=== PATIENT | male | born 1960 | race Caucasian/White ===

== ENCOUNTER 2017-09-03 11:40 | Outpatient (RCR) | payer OTHER, SELFPAY | END 2017-09-29 23:59 | LOC: DC 11:40 | DX: E11.9 Type 2 diabetes mellitus without complications (principal); Z71.3 Dietary counseling and surveillance | CPT/HCPCS: 97802 ==

== ENCOUNTER 2017-11-19 10:56 | Outpatient (RCR) | payer OTHER, SELFPAY | END 2017-11-19 23:59 | LOC: DC 10:56 | DX: E11.9 Type 2 diabetes mellitus without complications (principal); Z71.3 Dietary counseling and surveillance | CPT/HCPCS: 97803 ==

== ENCOUNTER → 2018-09-02 09:56 | Outpatient (CLI) | payer OTHER, SELFPAY ==
[2018-09-02 12:08] LABS: Absolute Lymphocyte Count 2.38 X10^3/ul (0.83-4.51); Absolute Neutrophil Count 5.8 X10^3/uL (2.0-7.7); Basophil# 0.03 X10^3/uL; Basophil% 0.3 % (0-1); Eosinophil# 0.22 X10^3/uL; Eosinophils% 2.5 % (0-5); Hematocrit 43.9 % (40-54); Hemoglobin 14.7 g/dl (13.0-16.5); Lymphocyte # 2.38 X10^3/ul (4.0); Lymphocyte % 26.6 % (19-41); Mean Corp Hgb Conc 33.5 g/gl (32-36); Mean Corpuscular Hgb 29.6 pg (27.0-32.0); Mean Corpuscular Volume 88.3 fL (80-94); Mean Platelet Vol. 10.4 fl (6.2-12.0); Monocyte% 5.6 % (0-10); Neutrophil # 5.79 X10^3/uL (2.7-7.7); Neutrophil % 64.6 % (47-70); Platelet Count 168 K/mm3 (150-450); RBC Distribution Width CV 13.4 % (11.6-14.6); RBC Distribution Width SD 42.5 fl (35.1-43.9); Red Blood Count 4.97 M/mm3 (4.6-6.2)
[2018-09-02 12:11] LABS: POSITIVE COUNT NO; POSITIVE DIFFERENTIAL NO; POSITIVE MORPHOLOGY NO
[2018-09-02 12:34] LABS: ALB/GLOB Ratio 0.9 RATIO (0.9-2.4); AST(SGOT) 20 U/L (15-37); Alanine Aminotransfer ALT/SGPT 45 U/L (16-61); Albumin, Serum 3.6 g/dL (3.2-5.0); Alkaline Phosphatase 60 U/L (45-117); Anion Gap 12 (5-15); BUN 14 mg/dL (7-18); Calcium,Total 8.7 mg/dL (8.5-10.1); Chloride 106 mmol/L (98-107); Cholesterol 130 mg/dL (200); Creatinine, Serum 0.82 mg/dL (0.70-1.30); EST Glomerular Filtration Rate 103 mL/min (>60); Est Glom Filt Rate - Afr Amer 124 mL/min (>60); Globulin 3.8 g/dL (2.2-4.2); Glucose 205 mg/dL (74-106); High Density Lipoprotein 31 mg/dL; PSA,Total - Annual Screen 0.72 ng/mL (0.00-4.00); Potassium 4.3 mmol/L (3.5-5.1); Protein, Total 7.4 g/dL (6.4-8.2); Sodium Level 139 mmol/L (136-145); Triglycerides 289 mg/dL; Very Low Density Lipoprotein 58 mg/dL (5-40)
[2018-09-02 12:46] LABS: Microalbumin,Random Urine 48.5 mg/L (NO RANGE EST.); Microalbumin:Creatinine Ratio 62.3 mg/g CRE (<30 mg/g CRE)
== END ==
PROVIDERS: Family Provider Family Medicine; PCP Family Medicine; Visit Provider Family Medicine
DX: E11.9 Type 2 diabetes mellitus without complications (principal); Z12.5 Encounter for screening for malignant neoplasm of prostate; E78.5 Hyperlipidemia, unspecified
CPT/HCPCS: 36415; 80053; 80061; 82043; 82570; 84153; 85025; G0103

== ENCOUNTER 2019-08-04 07:19 | Day surgery (SDC) | payer OTHER, SELFPAY ==
[2019-07-05 08:15] VITALS: BMI 32.0
--- NOTE | 2019-07-05 08:29 | HP_ITS ---
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[employer] Required: No Is patient in pain?: No Allergies No Known Allergies Allergy (Unverified 07/05/19 08:15) Medications aspirin 81 mg tablet,delayed release 81 mg PO DAILY 07/05/19 [History Confirmed 07/05/19] atorvastatin 20 mg tablet 20 mg PO DAILY 07/05/19 [History Confirmed 07/05/19] dulaglutide 1.5 mg/0.5 mL subcutaneous pen injector 1.5 mg SC QWEEK 07/05/19 [History Confirmed 07/05/19] gabapentin 400 mg capsule 400 mg PO BID 07/05/19 [History Confirmed 07/05/19] losartan 100 mg tablet 100 mg PO DAILY 07/05/19 [History Confirmed 07/05/19] metformin 1,000 mg tablet 1,000 mg PO BID 07/05/19 [History Confirmed 07/05/19] montelukast 10 mg tablet 10 mg PO QPM 07/05/19 [History Confirmed 07/05/19] omega-3 fatty acids 1,000 mg capsule 1,000 mg PO DAILY 07/05/19 [History Confirmed 07/05/19] pioglitazone 30 mg tablet 30 mg PO DAILY 07/05/19 [History Confirmed 07/05/19] PFSH Medical History Diabetes (Acute) Hyperlipidemia (Acute) ALICE (obstructive sleep apnea) (Acute) HTN (hypertension) (Chronic) Surgical History s/p uvulaplasty (Acute) Family History Grandfather Cancer Grandmother Heart disease Father Cancer throat Social History (Updated 07/05/19 @ 08:29 by Alfredo Gomez MD) Smoking Status: Never smoker alcohol intake: current alcohol intake frequency: holidays/special occasions only HPI HPI HPI: GEOVANNY MILLER, is a 58 M who presents to the office today for HPI HPI Surgical H&P: Yes HPI: GEOVANNY MILLER, is a 58 M who presents to the office today for Positive Cologuard. Patient reports he had a last colonoscopy 20 years ago. He reports no abdominal pain or blood in his stool. He has no epigastric pain. He does not have any history of weight loss. He has no family history of colon cancer. ROS General General: No weight change or fatigue Endo Endocrine: Yes diabetes mellitus Cardio Cardiovascular: No murmur, pacemaker, heart disease, atrial fibrillation, high blood pressure, heart attack, heart stent, palpitations, shortness of breat with exertion or chest pain Psych Psychiatric: No depression or anxiety Resp Respiratory: No shortness of breath, Yes sleep apnea, No cough, No COPD, No asthma, No emphysema, No wheezing Gastro Gastrointestinal: No abdominal pain, No nausea or vomiting, No diarrhea, No constipation, No blood in stool, No acid reflux, No hemorrhoids, No ulcers, No gallbladder problem, No black,tarry stools Additional Details: Pancreatitis [place] Hematologic: No blood thinners Exam Const General: cooperative Orientation: alert, oriented x3 Resp Effort & Inspection: normal respiratory effort Auscultation: clear to auscultation bilaterally Cardio Rate: regular rate Rhythm: regular rhythm Heart Sounds: no murmurs GI Inspection: non-distended Palpation: soft, nontender Assessment & Plan Problems 1. Positive colorectal cancer screening using Cologuard test R19.5 2. Tobacco abuse Z72.0 Plan Patient is need of colonoscopy for positive Cologuard test. I also counseled on tobacco cessation. I explained endoscopy in detail to the patient. I explained the risks including but not limited to stroke or heart attack with anesthesia, perforation of the GI tract, bleeding, infection. I explained that any of these could necessitate further emergency surgery. The patient understands and all questions were answered sufficiently. The patient wishes to proceed with procedure. Alfredo Gomez MD Pager: [facility] [address] [place] [address], [address] [place] [address] Office: Orders Orders: Colonoscopy Today R19.5 Coding Level of Care Code Off vis,new,level 3 Diagnoses Positive colorectal cancer screening using Cologuard test R19.5 Tobacco abuse Z72.0 07/05/19 0829 <Electronically signed by Alfredo rocha MD> Date _ Alfredo Gomez MD I have re-examined the patient. There are no clinical changes since date of exam.
[2019-08-04] VITALS (7 sets, daily range): BP systolic 106–131; BP diastolic 71–82; PULSE 66–81; RESP 14–16; TEMP 24.4–36.6; O2SAT 93–97; BMI 33.3
[2019-08-04] MEDS: Lactated Ringers 1,000 ML 100 ML IV (08:00)
[2019-08-04 08:11] LABS: Bedside Glucose 187 mg/dL (70-110)
--- NOTE | 2019-08-04 08:30 | COLBX_PTH ---
PATIENT: GEOVANNY MILLER Jr. LOC: EN U#:[id number] AGE/SX: 58/M ROOM: RE08/04/[address]: Dr. Alfredo Gomez MD : 1960 BED: DIS: 08/04/2019 SPEC #: [id number] RECD: 08/04/19 09:09 STATUS: JANIE JESSIE #: [id number] AMAN: 08/04/19 08:[address]: Alfredo Gomez DEPT: SURGICAL PATHOLOGY RECD BY: Devon Ferguson ENTERED: 08/04/19 12:38 SP TYPE: COLON BX OTHR DR: Dr. Bobbi Briones MD Tissues: A - Sigmoid colon biopsy B - Cecum, NOS Procedures: Surgery Specimen Level IV HEADER OPERATION: Colonoscopy (MAC) PRE-OP DIAGNOSIS: Positive Cologuard TISSUE SUBMITTED: A - Sigmoid polyp, B - Cecum polyp MICROSCOPIC DIAGNOSIS A. Sigmoid colon polyp, biopsy: Tubular adenoma. B. Cecum polyp, biopsy: Fragments of tubular adenoma. Fecal debris. AM:johnny 08/07/19 MICROSCOPIC DESCRIPTION Slides are reviewed. GROSS DESCRIPTION A - Received in fixative is one container labeled with the patient's name and designated sigmoid polyp. The specimen consists of multiple irregular fragments of pastor soft tissue mixed with polypoid tissue that in aggregate measure 2 x 0.5 x 0.3 cm. The specimen is totally submitted in one cassette. B - Received is one container labeled with the patient's name and not further designated. The specimen consists of multiple irregular fragments of pastor soft tissue mixed with fecal material that in aggregate measure 2.5 x 0.5 x 0.1 cm. The specimen is totally submitted in one cassette. / SJ:johnny 08/04/19 TC:5 CPT: 84102 x2
--- NOTE | 2019-08-04 08:45 | OP.COLON_ITS ---
Patient Name: Buck Campuzano Procedure Date: 08/04/2019 8:07 AM Date of : 1960 Age: 58 Procedure: Colonoscopy Indications: Positive Cologuard test Providers: Alfredo Gomez MD Referring MD: Bobbi Briones Medicines: Monitored Anesthesia Care Patient Profile: Last Colonoscopy: more than 10 years ago. Complications: No immediate complications. Estimated blood loss: Minimal. Procedure: Pre-Anesthesia Assessment: - Prior to the procedure, a History and Physical was performed, and patient medications and allergies were reviewed. The patient's tolerance of previous anesthesia was also reviewed. The risks and benefits of the procedure and the sedation options and risks were discussed with the patient. All questions were answered, and informed consent was obtained. Prior Anticoagulants: The patient has taken aspirin, last dose was day of procedure. After reviewing the risks and benefits, the patient was deemed in satisfactory condition to undergo the procedure. After I obtained informed consent, the scope was passed under direct vision. Throughout the procedure, the patient's blood pressure, pulse, and oxygen saturations were monitored continuously. The colonoscope was introduced through the anus and advanced to the cecum, identified by appendiceal orifice and ileocecal valve. The colonoscopy was performed without difficulty. The patient tolerated the procedure well. The quality of the bowel preparation was adequate. Scope In: 8:15:50 AM Scope Withdrawal Time 0 hours 9 minutes 51 seconds Scope Out: 8:42:03 AM Total Procedure Duration Time 0 hours 26 minutes 13 seconds Findings: Two sessile polyps were found in the sigmoid colon and cecum. These polyps were removed with a hot snare. Resection and retrieval were complete. The exam was otherwise without abnormality on direct and retroflexion views. Impression: - Two polyps in the sigmoid colon and in the cecum, removed with a hot snare. Resected and retrieved. - The examination was otherwise normal on direct and retroflexion views. Recommendation: - Discharge patient to home. - Resume previous diet. - Continue present medications. - Await pathology results. - Repeat colonoscopy after studies are complete for surveillance. Procedure Code(s): --- Professional --- 87522, Colonoscopy, flexible; with removal of tumor(s), polyp(s), or other lesion(s) by snare technique Diagnosis Code(s): --- Professional --- D12.5, Benign neoplasm of sigmoid colon D12.0, Benign neoplasm of cecum R19.5, Other fecal abnormalities CPT copyright 2017 [employer]. All rights reserved. The codes documented in this report are preliminary and upon inpatient coder review may be revised to meet current compliance requirements. Alfredo Gomez MD 08/04/2019 8:45:30 AM This report has been signed electronically. Number of Addenda: 0 Note Initiated On: 08/04/2019 8:07 AM
[2019-08-04 09:16] LABS: Bedside Glucose 146 mg/dL (70-110)
== END 2019-08-04 09:24 | disposition home or self-care (01) ==
LOC: EN 07:20 → AC 07:21
PROVIDERS: Family Provider Family Medicine; PCP Family Medicine; Referring Provider Family Medicine; Visit Provider Surgery
PROC: 0DJD8ZZ Inspection of Lower Intestinal Tract, Via Natural or Artificial Opening Endoscopic (ICD-10-PCS; CPT 45378; principal; 2019-08-04 08:25)
DX: D12.5 Benign neoplasm of sigmoid colon (principal); K63.5 Polyp of colon; I10 Essential (primary) hypertension; E11.9 Type 2 diabetes mellitus without complications; E78.00 Pure hypercholesterolemia, unspecified; G47.33 Obstructive sleep apnea (adult) (pediatric); G25.81 Restless legs syndrome; Z79.82 Long term (current) use of aspirin; Z79.84 Long term (current) use of oral hypoglycemic drugs; Z79.899 Other long term (current) drug therapy; Z87.891 Personal history of nicotine dependence
CPT/HCPCS: 45385; 82962; 88305; J7120; J2405

== ENCOUNTER → 2022-09-25 | Outpatient (CLI) | payer OTHER, SELFPAY ==
[2022-09-25 12:38] LABS: Basophil# 0.03 X10^3/uL; Basophil% 0.4 % (0-1); Eosinophil# 0.16 X10^3/uL; Eosinophils% 2.1 % (0-5); Hematocrit 44.3 % (40-54); Hemoglobin 15.1 g/dL (13.0-16.5); Lymphocyte % 23.7 % (19-41); Mean Corp Hgb Conc 34.1 g/dL (32-36); Mean Corpuscular Hgb 30.8 pg (27.0-32.0); Mean Corpuscular Volume 90.4 fL (80-94); Mean Platelet Vol. 10.3 fl (6.2-12.0); Monocyte# 0.51 X10^3/uL; Monocyte% 6.7 % (0-10); NRBC Flagged by Analyzer 0 % (0-5); Platelet Count 186 K/mm3 (150-450); RBC Distribution Width SD 42.2 fl (35.1-43.9); White Blood Count 7.6 K/mm3 (4.4-11.0)
[2022-09-25 12:57] LABS: Microalbumin,Random Urine 10.9 mg/L (NO RANGE EST.); Microalbumin:Creatinine Ratio 33.2 mg/g CRE (<30 mg/g CRE)
[2022-09-25 13:16] LABS: ALB/GLOB Ratio 1.1 RATIO (0.9-2.4); AST(SGOT) 14 U/L (15-37); Alanine Aminotransfer ALT/SGPT 32 U/L (16-61); Albumin, Serum 3.8 g/dL (3.2-5.0); Alkaline Phosphatase 55 U/L (45-117); Anion Gap 7 (5-15); BUN 12 mg/dL (7-18); BUN/Creat Ratio 15.2 RATIO (10-20); Calcium,Total 9.5 mg/dL (8.5-10.1); Chloride 106 mmol/L (98-107); Cholesterol 132 mg/dL (200); Creatinine, Serum 0.79 mg/dL (0.70-1.30); EST Glomerular Filtration Rate 106 mL/min (>60); Est Glom Filt Rate - Afr Amer 128 mL/min (>60); Globulin 3.6 g/dL (2.2-4.2); Glucose 166 mg/dL (74-106); High Density Lipoprotein 49 mg/dL; Potassium 4.2 mmol/L (3.5-5.1); Protein, Total 7.4 g/dL (6.4-8.2); Sodium Level 139 mmol/L (136-145); Triglycerides 75 mg/dL; Very Low Density Lipoprotein 15 mg/dL (5-40)
== END | disposition home or self-care (01) ==
PROVIDERS: PCP Family Medicine; Visit Provider Family Medicine
DX: Z00.00 Encounter for general adult medical examination without abnormal findings (principal); E11.65 Type 2 diabetes mellitus with hyperglycemia; E11.69 Type 2 diabetes mellitus with other specified complication; E78.5 Hyperlipidemia, unspecified
CPT/HCPCS: 80053; 80061; 82043; 82570; 85025

== ENCOUNTER → 2023-11-19 | Outpatient (CLI) | payer OTHER, SELFPAY ==
[2023-11-19 12:22] LABS: Absolute Lymphocyte Count 2.03 X10^3/uL (0.83-4.51); Absolute Neutrophil Count 4.5 X10^3/uL (2.0-7.7); Basophil# 0.02 X10^3/uL; Basophil% 0.3 % (0-1); Eosinophil# 0.15 X10^3/uL; Eosinophils% 2.1 % (0-5); Hematocrit 41.9 % (40-54); Hemoglobin 14.1 g/dL (13.0-16.5); Lymphocyte # 2.03 X10^3/ul (0.83-4.51); Lymphocyte % 28.2 % (19-41); Mean Corp Hgb Conc 33.7 g/dL (32-36); Mean Corpuscular Hgb 29.9 pg (27.0-32.0); Mean Platelet Vol. 10.3 fl (6.2-12.0); Monocyte# 0.48 X10^3/uL; Monocyte% 6.7 % (0-10); NRBC Flagged by Analyzer 0 % (0-5); Neutrophil # 4.46 X10^3/uL (2.7-7.7); Platelet Count 188 K/mm3 (150-450); RBC Distribution Width CV 12.7 % (11.6-14.6); RBC Distribution Width SD 41.3 fl (35.1-43.9); Red Blood Count 4.71 M/mm3 (4.6-6.2); White Blood Count 7.2 K/mm3 (4.4-11.0)
[2023-11-19 13:01] LABS: AST(SGOT) 13 U/L (15-37); Alanine Aminotransfer ALT/SGPT 27 U/L (16-61); Albumin, Serum 3.5 g/dL (3.2-5.0); Alkaline Phosphatase 41 U/L (45-117); Anion Gap 7 (5-15); BUN 12 mg/dL (7-18); BUN/Creat Ratio 17.7 RATIO (10-20); Calcium,Total 9.2 mg/dL (8.5-10.1); Chloride 106 mmol/L (98-107); Cholesterol 133 mg/dL (200); Creatinine, Serum 0.68 mg/dL (0.70-1.30); EST Glomerular Filtration Rate 127 mL/min (>60); Est Glom Filt Rate - Afr Amer 153 mL/min (>60); Globulin 3.6 g/dL (2.2-4.2); Glucose 123 mg/dL (74-106); High Density Lipoprotein 50 mg/dL; Protein, Total 7.1 g/dL (6.4-8.2); Sodium Level 136 mmol/L (136-145); Thyroid Stim Hormone (TSH) 2.03 uIU/mL (0.358-3.74); Triglycerides 110 mg/dL; Very Low Density Lipoprotein 22 mg/dL (5-40)
[2023-11-19 16:03] LABS: Microalbumin,Random Urine 20.8 mg/L (NO RANGE EST.); Microalbumin:Creatinine Ratio 25.4 mg/g CRE (<30 mg/g CRE)
== END | disposition home or self-care (01) ==
LOC: BFHLAB 10:56
PROVIDERS: PCP Family Medicine; Visit Provider Family Medicine
DX: Z00.00 Encounter for general adult medical examination without abnormal findings (principal); E11.65 Type 2 diabetes mellitus with hyperglycemia; E11.69 Type 2 diabetes mellitus with other specified complication; E78.5 Hyperlipidemia, unspecified; I10 Essential (primary) hypertension
CPT/HCPCS: 36415; 80053; 80061; 82043; 82570; 84443; 85025

== ENCOUNTER → 2025-01-25 | Outpatient (CLI) | payer OTHER, SELFPAY ==
[2025-01-25 12:43] LABS: Absolute Lymphocyte Count 1.75 X10^3/uL (0.83-4.51); Absolute Neutrophil Count 6.7 X10^3/uL (2.0-7.7); Basophil# 0.04 X10^3/uL; Basophil% 0.4 % (0-1); Eosinophil# 0.23 X10^3/uL; Eosinophils% 2.5 % (0-5); Hematocrit 42.3 % (40-54); Lymphocyte # 1.75 X10^3/ul (0.83-4.51); Lymphocyte % 18.9 % (19-41); Mean Corp Hgb Conc 33.1 g/dL (32-36); Mean Corpuscular Hgb 30.6 pg (27.0-32.0); Mean Corpuscular Volume 92.6 fL (80-94); Mean Platelet Vol. 10.3 fl (6.2-12.0); Monocyte# 0.53 X10^3/uL; Monocyte% 5.7 % (0-10); NRBC Flagged by Analyzer 0 % (0-5); Neutrophil # 6.68 X10^3/uL (2.7-7.7); Neutrophil % 72.1 % (47-70); Platelet Count 187 K/mm3 (150-450); RBC Distribution Width CV 13.6 % (11.6-14.6); RBC Distribution Width SD 46.5 fl (35.1-43.9); Red Blood Count 4.57 M/mm3 (4.6-6.2); White Blood Count 9.3 K/mm3 (4.4-11.0)
[2025-01-25 13:40] LABS: ALB/GLOB Ratio 1.6 RATIO (0.9-2.4); AST(SGOT) 19 U/L (<=37); Alanine Aminotransfer ALT/SGPT 18 U/L (<=46); Albumin, Serum 4.2 g/dL (3.4-4.8); Alkaline Phosphatase 46 U/L (40-129); Anion Gap 12 (5-15); BUN 17 mg/dL (4-19); BUN/Creat Ratio 22.8 RATIO (10-20); Calcium,Total 9.6 mg/dL (7.6-11.0); Carbon Dioxide 22.5 mmol/L (21.0-32.0); Chloride 102 mmol/L (98-108); Cholesterol 110 mg/dL (<=200); Creatinine, Serum 0.73 mg/dL (0.70-1.20); EST Glomerular Filtration Rate 103 (>60); Globulin 2.6 g/dL (2.2-4.2); Glucose 91 mg/dL (70-99); High Density Lipoprotein 48 mg/dL; Low Density Lipoprotein Calc. 44 mg/dL; Potassium 4.7 mmol/L (3.3-5.1); Protein, Total 6.8 g/dL (5.9-8.4); Sodium Level 137 mmol/L (133-145); Triglycerides 89 mg/dL; Very Low Density Lipoprotein 18 mg/dL (5-40); cholesterol:hdl ratio screen 2.29
[2025-01-25 13:46] LABS: Microalbumin,Random Urine < 12.0 mg/L (NO RANGE EST.); Microalbumin:Creatinine Ratio UNABLE TO CALCULATE mg/g CRE
--- OUTSIDE RECORDS SUMMARY | 2025-01-25 19:31 | XMS RPT_ITS | CCD ---
Author Organization [facility] Care Team Providers Care Integrity Manager Name Role Phone Bobbi Briones E Unavailable Unavailable Unavailable Bobbi Briones Attending Unavailable Bobbi Briones Primary Care Unavailable Bobbi Briones MD Primary Care Provider [phone] BOBBI BRIONES Primary Care Unavailable JIMMY OGDEN Referring Unavailable JIMMY OGDEN Attending Unavailable BOBBI BRIONES Referring Unavailable BOBBI BRIONES Primary Care Unavailable NEYMAR BLACK Attending Unavailable JIMMY OGDEN Attending Unavailable BOBBI BRIONES Primary Care Unavailable BOBBI BRIONES Primary Care Unavailable NYDIA LEAL Referring Unavailable JIMMY OGDEN Attending Unavailable Allergies Allergy Classification Reported Allergen(s) Allergy Type Date of Onset Reaction(s) Facility (4 sources) Grass Allergy to substance (finding) [facility] Work Phone: (3 sources) Lisinopril Propensity to adverse reactions 2 Cough [facility] (3 sources) Pollen Propensity to adverse reactions 0 Itching, Runny nose, Wheezing [facility] Medications Current Medications Medication Drug Class(es) Dates Sig (Normalized) Sig (Original) aspirin 81 mg delayed release oral tablet (3 sources) Platelet Aggregation Inhibitor, Nonsteroidal Anti-inflammatory Drug Start: 07-05-2019 Aspirin (Maki Low Dose Aspirin) 81 mg tablet,delayed release (DR/EC) Active 81 MG PO DAILY July 05, 2019 1:00am Start: 09-12-2015 take 81 mg by mouth once daily aspirin 81 MG oral suspension 81 mg daily. 09/12/2015 Active atorvastatin 20 mg oral tablet (7 sources) HMG-CoA Reductase Inhibitor Start: 08-12-2015 take 20 mg by mouth once daily Atorvastatin Active 20 MG PO DAILY July 05, 2019 1:00am Start: 03-22-2014 Atorvastatin C alcium 20 MG Oral Tablet Quantity: 90 Refills: 0 Ordered: 30-Jul-2014 DO Start : 22-Mar-2014 Active azelastine hydrochloride 0.137 mg/actuat metered dose nasal spray (13 sources) Histamine-1 Receptor Antagonist Start: 12-14-2023 End: 12-13-2024 take 1 spray(s) nasal route twice daily azelastine (Astelin) 0.1 % nasal spray Indications: Allergic rhinitis due to animal hair and dander Administer 1 spray into each nostril 2 times daily. Use in each nostril as directed 30 mL 12 12/14/2023 12/13/2024 Active cetirizine hydrochloride 10 mg oral tablet (13 sources) Histamine-1 Receptor Antagonist Start: 12-14-2023 End: 12-13-2024 take 1 tablet by mouth once daily cetirizine (ZyrTEC) 10 MG tablet Indications: Allergic rhinitis due to animal hair and dander Take 1 tablet (10 mg) by mouth Nightly. 30 tablet 12/14/2023 12/13/2024 Active docosahexaenoic acid 120 mg / eicosapentaenoic acid 180 mg oral capsule (1 source) Start: 08-12-2015 omega-3 (Fish Oil) 1000 MG capsule 08/12/2015 Active 0.5 ml dulaglutide 3 mg/ml auto-injector (2 sources) GLP-1 Receptor Agonist Start: 07-05-2019 Dulaglutide (Trulicity) 1.5 mg/0.5 mL pen injector Active 1.5 MG SC EVERY WEEK July 05, 2019 1:00am fluticasone propionate 0.05 mg/actuat metered dose nasal spray (13 sources) Corticosteroid Start: 12-14-2023 End: 06-11-2024 take 2 spray(s) nasal route once daily fluticasone (Flonase) 50 MCG/ACT nasal spray Indications: Allergic rhinitis due to animal hair and dander Administer 2 sprays into each nostril daily. Shake gently. Before first use, prime pump. After use, clean tip and replace cap. 16 g 6 12/14/2023 Active gabapentin 400 mg oral capsule (7 sources) Anti-epileptic Agent Start: 07-05-2019 take 400 mg by mouth twice daily Gabapentin Active 400 MG PO TWICE A DAY July 05, 2019 1:00am Start: 11-19-2017 Gabapentin 300 MG Oral Capsule Quantity: 180 Refills: 0 Ordered: 19-Nov-2017 DO Start : 19-Nov-2017 Active Start: 08-12-2015 Neurontin 400 MG capsule 800 mg daily. 08/12/2015 Active losartan potassium 100 mg oral tablet (11 sources) Angiotensin 2 Receptor Debra Start: 06-16-2017 Losartan Potassium 1 00 MG Oral Tablet Quantity: 90 Refills: 0 Ordered: 23-Feb-2018 DO Start : 16-Jun-2017 Active Start: 08-12-2015 take 100 mg by mouth once marry y Losartan Active 100 MG PO DAILY July 05, 2019 1:00am Start: 03-22-2014 Losartan Potas sium 50 MG Oral Tablet Quantity: 90 Refills: 0 Ordered: 30-Jul-2014 DO Start : 22-Mar-2014 Active metFORMIN hydrochloride 1000 mg oral tablet (7 sources) Biguanide Start: 08-12-2015 take 1000 mg by mouth twice daily Metformin Active 1000 MG PO TWICE A DAY July 05, 2019 1:00am Start: 03-22-2014 metFORMIN HCl - 1000 MG Oral Tablet Quantity: 180 Refills: 0 Ordered: 22-Mar-2014 DO Start : 22-Mar-2014 Active montelukast 10 mg oral tablet (2 sources) Leukotriene Receptor Antagonist Start: 07-05-2019 take 1 tablet by mouth once daily in the evening Montelukast (Singulair) 10 mg tablet Active 10 MG PO EVERY EVENING July 05, 2019 1:00am Mounjaro 7.5 MG/0.5ML solution auto-injector (1 source) Start: 05-10-2024 Mounjaro 7.5 MG/0.5ML solution auto-injector 05/10/2024 Active Multiple Vitamins-Minerals (Multiple Vit/Minerals/No Iron) tablet (1 source) Start: 08-12-2015 Multiple Vitamins-Minerals (Multiple Vit/Minerals/No Iron) tablet 08/12/2015 Active Piqua-3 Fatty Acids (Fish Oil Concentrate) 1,000 mg capsule (2 sources) Start: 07-05-2019 take 1 capsule by mouth once daily Piqua-3 Fatty Acids (Fish Oil Concentrate) 1,000 mg capsule Active 1000 MG PO DAILY July 05, 2019 1:00am Start: 07-05-[address] take [address] [facility] once daily Piqua-3 Fatty Acids (Fish Oil Concentrate) 1,000 mg capsule Active 1000 MG PO DAILY July 05, 2019 12:00am pioglitazone 30 mg oral tablet (3 sources) Peroxisome Proliferator Receptor alpha Agonist, Peroxisome Proliferator Receptor gamma Agonist, Thiazolidinedione Start: 08-12-2015 take 1 tablet by mouth once daily Pioglitazone (Actos) 30 mg tablet Active 30 MG PO DAILY July 05, 2019 1:00am Completed/Discontinued Medications Medication Drug Class(es) Dates Sig (Normalized) Sig (Original) [id number] 200 actuat albuterol 0.09 mg/actuat metered dose inhaler (4 sources) beta2-Adrenergic Agonist Start: 10-25-2014 take 2 puff(s) by inhalation every four to six hours as needed ProAir HFA 108 (90 Base) MCG/ACT Inhalation Aerosol Solution INHALE 2 PUFFS EVERY 4-6 HOURS NEEDED. Quantity: 1 Refills: 0 Ordered: 25-Oct-2014 Carmine Bergman DO Start : 25-Oct-2014 Active azithromycin 250 mg oral tablet (6 sources) Macrolide Antimicrobial Start: 05-18-2018 Azithromycin 250 MG Oral Tablet TAKE 2 TABLETS ON DAY 1 THEN TAKE 1 TABLET A DAY FOR 4 DAYS. Quantity: 1 Refills: 0 Ordered: 17-May-2021 Karen Lozada PA-C Start : 17-May-2021 Active benzonatate 200 mg oral capsule (4 sources) Non-narcotic Antitussive Start: 10-25-2014 take 1 capsule by mouth three times daily as needed for cough Benzonatate 200 MG Oral Capsule TAKE 1 CAPSULE 3 TIMES DAILY NEEDED FOR COUGH. Quantity: 30 Refills: 0 Ordered: 25-Oct-2014 Carmine Bergman DO Start : 25-Oct-2014 Active doxycycline monohydrate 100 mg oral tablet (4 sources) Tetracycline-class Drug Start: 03-23-2021 take 1 tablet by mouth once daily Doxycycline Monohydrate 100 MG Oral Tablet TAKE 1 TABLET EVERY 12 HOURS DAILY. Quantity: 20 Refills: 0 Ordered: 23-Mar-2021 Kd Pena MD Start : 23-Mar-2021 Active glimepiride 4 mg oral tablet (8 sources) Sulfonylurea Start: 05-26-2014 Glimepiride 4 MG Oral Tablet Quantity: 90 Refills: 0 Ordered: 26-May-2014 DO Start : 26-May-2014 Active Start: 03-22-2014 Glimepiride 2 MG Oral Tablet Quantity: 90 Refills: 0 Ordered: 22-Mar-2014 DO Start : 22-Mar-2014 Active methylPREDNISolone 4 MG Oral Tablet Therapy Pack (2 sources) Start: 05-17-2021 methylPREDNISo lone 4 MG Oral Tablet Therapy Pack Take as per package instructions Quantity: 1 Refills: 0 Ordered: 17-May-2021 Karen Lozada PA-C Start : 17-May-2021 Active predniSONE 10 mg oral tablet (8 sources) Start: 03-23-2021 predniSONE 10 MG Oral Tablet 3 tabs day number 1 and 2, then 2 tabs day number 3 and 4, then 1 tab day number 5 and 6 Quantity: 12 Refills: 0 Ordered: 23-Mar-2021 Kd Pena MD Start : 23-Mar-2021 Active Start: 10-25-2014 take 1 tablet by manju th twice daily at mealtime predniSONE 20 MG Oral Tablet TAKE 1 TABLET Twice daily with food Quantity: 8 Refills: 0 Ordered: 25-Oct-2014 Carmine Bergman DO Start : 25-Oct-2014 Active Problems Active Problems Problem Classification Problem Date Documented Da te Episodic/Chronic Acute bronchitis (10 sources) Acute bronchitis with bronchospasm; Translations: [Acute bronchitis] Episodic Other hereditary and degenerative nervous system conditions (1 source) Restless legs; Translations: [Restless legs syndrome] 12-14-2023 Chronic Other hereditary and degenerative nervous system conditions (2 sources) Restless legs syndrome; Translations: [Restless legs syndrome] Onset: 12-14-2023 Chronic Other lower respiratory disease (4 sources) Cough; Translations: [Cough] Episodic Other nervous system disorders (1 source) Tremor; Translations: [Tremor, unspecified] 09-07-2024 Episodic Other nervous system disorders (2 sources) Tremor, unspecified; Translations: [Tremor, unspecified] Onset: 09-07-2024 Episodic Other upper respiratory disease (2 sources) Allergic rhinitis due to animal hair and dander; Translations: [Allergic rhinitis due to animal (cat) (dog) hair and dander] 12-14-2023 Chronic Other upper respiratory disease (2 sources) Allergic rhinitis due to animal (cat) (dog) hair and dander; Translations: [Allergic rhinitis due to animal (cat) (dog) hair and dander] Onset: 12-14-2023 Chronic Residual codes; unclassified (4 sources) Obstructive sleep apnea syndrome; Translations: [Obstructive sleep apnea (adult) (pediatric)] 12-14-2023 Chronic Residual codes; unclassified (2 sources) Obstructive sleep apnea (adult) (pediatric); Translations: [Obstructive sleep apnea (adult) (pediatric)] Onset: 01-14-2024 Chronic Sprains and strains (2 sources) Lower back injury; Translations: [Strain of muscle, fascia and tendon of lower back, initial encounter] 06-26-2020 Episodic Past or Other Problems Problem Classification Problem Date Documented Da te Episodic/Chronic Other lower respiratory disease (2 sources) H/O: bronchitis; Translations: [Personal history of other diseases of respiratory system] Resolved: 03-23-2021 Episodic Unclassified (2 sources) s/p uvulaplasty 03-02-2022 Results Test Name Value Interpretation Reference Range Facility Office Visiton 09-07-2024 Follow-up visit [id number] Haim Millercaryl Colon 1960 M Date Provider Department Center 09/07/2024 [id number] BLACK [facility] [place] None Family History Problem Relation Age of Onset Parkinson's Disease Brother Family Status - Relation Status Age at Brother Level of Service:26351 [place] OFFICE/OUTPATIENT NEW MODERATE MDM 45 MINUTES Reason for Visit and Comments: New Patient [542] - New patient-tremors hands and head. likely years, unsure how long Normal [facility] Progress Noteon 09-07-2024 Progress Note NEUROLOGY CLINIC H&P Name: Buck Miller Date: 09/07/2024 Handedness: Left Patient's PCP: Bobbi Briones MD REASON FOR VISIT: Tremor HISTORY OF PRESENT ILLNESS: The following portions of the patient's history were reviewed and updated as appropriate: allergies, current medications, past family history, past medical history, past social history, past surgical history and problem list. Buck Miller is a 64 y.o. male with Past medical history of diabetes, hypertension, erectile dysfunction, hyperlipidemia, restless leg, sleep apnea who presents to neurology office to establish care for tremors. Onset of symptoms: Since 2022 started in left hand and then right at time. Over the last 1 year started noticing some head tremor No Neck dystonia No triggers Tremors are mostly at rest He does have significant RLS Most recent Sleep study: Had ALICE and Periodic limb movement states that moves a lot in his sleep has noticed more tremors when he is holding his phone, No other aggravating or alleviating features Hx of psych meds us: No Hx of recurrent trauma: No, No contact sports NO exposure to agent orange Walking and falls: mechanical Freeze: None A/w: No Anosmia feels that he is congested most of the times, Does have Erectile dysfunction, Does have constipation which he attributes to Mounjaro, Does have flat look on face at carolyn Handwriting: Sloppy Hallucinations: None Mood: generally ok Memory: Good Behavioral changes: None Exercise: No Work up: None Social: Lives with . 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 Smoking: No, Alcohol: No, No rec drug use At baseline: Pt is fully functional Fhx: Brother has PD PAST MEDICAL HISTORY: Past Medical History: Diagnosis Date Diabetes mellitus (HCC) Hypertension Sleep apnea, obstructive Umbilical hernia PAST SURGICAL HISTORY: Past Surgical History: Procedure Laterality Date THROAT SURGERY 1996 FAMILY MEDICAL HISTORY: Family History Problem Relation Name Age of Onset Parkinson's Disease Brother SOCIAL HISTORY: Social History Socioeconomic History Marital status: Tobacco Use Smoking status: Never Smokeless tobacco: Never Substance and Sexual Activity Alcohol use: Yes Drug use: Never Allergy: Allergies Allergen Reactions Lisinopril Cough Pollen Extract Itching, Runny nose and Wheezing MEDS: Current Outpatient Medications Medication Sig Dispense Refill Actos 30 MG tablet 30 mg daily. aspirin 81 MG oral suspension 81 mg daily. cetirizine (ZyrTEC) 10 MG tablet Take 1 tablet (10 mg) by mouth Nightly. 30 tablet 11 Lipitor 20 MG tablet 20 mg daily. losartan (Cozaar) 100 MG tablet 100 mg daily. metFORMIN (Glucophage) 1000 MG tablet 1,000 mg 2 times daily. Mounjaro 7.5 MG/0.5ML solution auto-injector Multiple Vitamins-Minerals (Multiple Vit/Minerals/No Iron) tablet Neurontin 400 MG capsule 800 mg daily. omega-3 (Fish Oil) 1000 MG capsule azelastine (Astelin) 0.1 % nasal spray Administer 1 spray into each nostril 2 times daily. Use in each nostril as directed (Patient not taking: Reported on 09/07/2024) 30 mL 12 fluticasone (Flonase) 50 MCG/ACT nasal spray Administer 2 sprays into each nostril daily. Shake gently. Before first use, prime pump. After use, clean tip and replace cap. 16 g 6 No current facility-administered medications for this visit. COMPLETE REVIEW OF SYSTEMS NEGATIVE UNLESS STATED ABOVE. PHYSICAL EXAM: BP 134/71 (BP Location: Left arm, Patient Position: Sitting, BP Cuff Size: Large adult) Pulse 67 Temp 36.2 ?C (97.1 ?F) (Temporal) Ht 5' 9 (1.753 m) Wt 229 lb 6.4 oz (104 kg) BMI 33.88 kg/m? GENERAL APPEARANCE: Alert, well-developed, well-nourished male in no acute distress. HEENT: Normocephalic and atraumatic. PERRL. Oropharynx unremarkable. PULM: Normal respiratory effort. No accessory muscle use. CV: RRR. NEURO: MENTAL STATUS: Patient awake and oriented to time, place, and person. Speech clear and fluent. Affect normal. CRANIAL NERVES: CN I: Not tested. CN II: Visual arriola full. CN III, IV, : Pupils equal, round and reactive to light and accommodation; extraocular movements full and intact. CN V: Facial sensation normal. CN VII: No facial asymmetry. CN VIII: Hearing grossly normal and equal bilaterally. No skew deviation or pathologic nystagmus. CN IX, X: Palate elevates symmetrically. CN XI: Shoulder shrug and chin rotation equal with good strength. CN XII: Tongue protrusion midline. MOTOR: Normal bulk. Tone normal and symmetrical throughout. No abnormal movements. Very minimal action tremor Strength 5/5 throughout unless specified below. Bicep Tricep Delt Grasp IPsoas Quads Hams DFlex PFlex EHL Left Right SENSATION: Sensation grossly intact to fine touch COORDINATION: Govlyt-ob-whop normal for age. STATION: Romberg unremarkable GAIT: Decreased arm swing DIAGNOSTIC TESTS (more content not included)... Normal [facility] 36on 05-10-2024 36 LM to r/s 05/16 appt . Cloud 66 message sent as well. Normal [facility] Office Visiton 03-15-2024 Follow-up visit [id number] Osiris Miller 1960 M Date Provider Department Center 03/15/2024 [id number] OGDEN [facility] None No family history on file Level of Service:42052 [place] OFFICE/OUTPATIENT ESTABLISHED SF MDM 10 MIN Reason for Visit and Comments: Follow-up [[id number]] Normal [facility] PATINSon 03-15-2024 PATINS YOUR APPOINTMENT TOChuck PALOMO WAS WITH [facility], COPD CLINIC, PULMONARY AND SLEEP MEDICINE OFFICE. PLEASE CALL OUR OFFICE AT [phone] IF YOU HAVE NOT RECEIVED YOUR TEST RESULTS 7 DAYS AFTER TESTING IS COMPLETED. PLEASE REMEMBER TO REQUEST REFILLS AT YOUR OFFICE VISITS. PHONE/FAX REQUESTS REQUIRE 48-72 HOURS FOR RESPONSE. A FRIENDLY REMINDER COPAYS ARE DUE AT TIME OF SERVICE. THANK YOU. Our Patients Are Important! We want to improve and you can help. After your visit we want you to feel: Listened to, Respected and have your health care explained. You may receive a survey asking you about your visit. Please complete the survey. We will use your feedback to make improvements. COVID-19 VACCINATION INFORMATION: . [phone] HEALTH.ORG/CORONAVIRUS/VAC CINE [facility] Central Scheduling [phone] [facility] Sleep Scheduling [phone] [facility] Progress Noteon 03-15-2024 Progress Note [facility] Department of Pulmonary Medicine PATIENT VISIT-PULMONARY 03/21/2024 REFERRING PHYSICIAN: Bobbi Briones MD REASON FOR REFERRAL: Follow up ordered Buck Miller is a very pleasant 63 y.o. male with past medical history significant for alice, hx of uPPP , remote, allergic rhinitis, shortness of breath, RLS , who presents to pulmonary clinic for evaluation of alice on pap , persistent non restorative sleep, oudated pap. Re-initiated on PAP. Pt working a lot. Fatigue. Using PAP. Reviewed. Dme /interface options. Effective per reportn. Follow up for ongoing care. No change in respiratory signs and symptoms Assessment and Plan: Diagnosis Plan 1. ALICE (obstructive sleep apnea) Dme [facility]. Continue PAP, bring in if need pressure adustment Compliance report reviewd, excellent. No leak 2. Allergic rhinitis due to animal hair and dander Compensated History of Present Illness Smoking history- [] Occupational exposure- [] Asthma History [] COPD History [] PastMedical History Past Medical History: Diagnosis Date Diabetes mellitus (HCC) Hypertension Sleep apnea, obstructive Past Surgical History Past Surgical History: Procedure Laterality Date THROAT SURGERY 1996 Allergies Allergies Allergen Reactions Lisinopril Cough Pollen Extract Itching, Runny nose and Wheezing Medications reviewed at time of encounter Medication Documentation Review Audit Reviewed by Cintia Schwartz MA (Tank Car Mechanic) on 03/15/24 at 1423 Medication Order Taking? Sig Documenting Provider Last Dose Status azelastine (Astelin) 0.1 % nasal spray [id number] Yes Administer 1 spray into each nostril 2 times daily. Use in each nostril as directed Jimmy Ogden DO Taking Active cetirizine (ZyrTEC) 10 MG tablet [id number] Yes Take 1 tablet (10 mg) by mouth Nightly. Jimmy Ogden DO Taking Active fluticasone (Flonase) 50 MCG/ACT nasal spray [id number] Yes Administer 2 sprays into each nostril daily. Shake gently. Before first use, prime pump. After use, clean tip and replace cap. Jimmy Ogden DO Taking Active Medications reviewed Social History Social History Tobacco Use Smoking status: Never Smokeless tobacco: Never Substance Use Topics Alcohol use: Yes FamilyHistory No family history on file. In addition to those listed in HPI: Review of Systems HENT: Negative for congestion. Respiratory: Positive for apnea. Negative for cough, choking, chest tightness, shortness of breath and stridor. Physical Exam Constitutional: Appearance: He is not ill-appearing. Cardiovascular: Rate and Rhythm: Normal rate. Pulmonary: Effort: Pulmonary effort is normal. Musculoskeletal: General: No swelling. Normal range of motion. Neurological: General: No focal deficit present. Mental Status: He is alert and oriented to person, place, and time. Physical Exam Vitals: 03/15/24 1425 BP: 134/70 BP Location: Left arm Patient Position: Sitting BP Cuff Size: Adult Pulse: 80 Resp: 18 SpO2: 95% Weight: 235 lb 3.2 oz (107 kg) Height: 5' 9 (1.753 m) LABS and Studies: Available studies were reviewed [x] IgE reviewed [] Peripheral eosinophils reviewed [x] Radiology: available imaging reviewed personally [x] PFT's : available [] Pulmonary Functions Testing Results: No results found for: FEV1, FVC, DKR6GTK, TLC, DLCO No orders of the defined types were placed in this encounter. Counseling given: Not Answered No results found for: CBCDIF, QAFUMIGATUS No results found for: EOSABS, IGE, IMMUNOGLOBUL The USPSTF recommends annual screening for lung cancer with low-dose computed tomography (LDCT) in adults aged 50 to 80 years who have a 20 pack-year smoking history and currently smoke or have quit within the past 15 years. Screening should be discontinued once a person has not smoked for 15 years or develops a health problem that substantially limits life expectancy or the ability or willingness to have curative lung surgery. Patient meets criteria [] No orders of the defined types were placed in this encounter. [facility] [id number] 02-07-2024 [id number] Called and spoke wit h the patient. Spoke with Dr Ogden as well. Ordered an autopap for the patient at this time. Let the patient know that we sent his order to [facility]. Patient verbalized understanding. He is going for a mask fitting next week. No further questions at this time. [facility] [id number] 02-02-2024 [id number] Sleep study results in media. Pt asking if able to order CPAP prior to appointment on 03/15/2024. [facility] [id number] [id number] Called [facility] to follow up on results. Per Sleep Lab, they uploaded the results to [facility]. Sleep Lab to fax results over to office as well. [facility] Polysomnographyon 01-24-2024 [place] [id number] 01-13-2024 36 Insurance coverage i ssue. Needs psg with titration. Ordered psg . And titration. Will order just psg as dictated by insurance [facility] 36 We are waiting on e provider to do an updated order for just he PSG. Sending him a reminder it needs done today as test is tomorrow. Thanks! [facility] 36on 01-12-2024 36 [facility], This patient is scheduled for 01/13 for Split night. Patient has medical mutual and auth would go to [employer] portal. Seen auth has been pending on the portal for some time and call [facility] to see status. Spoke with rep Mckenzie Foster was told for auth #[id number] auth was approved for cpt code 01211 but denied for cpt code 14824. Seeing how did you want to proceed? Thank you [facility] Sleep scheduling department [facility] 01-11-2024 36 Good Morning! We are only able to get the PSG (16766) approved with the patient's insurance, as they will not approve a split night and the sleep center will not schedule to patient for just that with the current order for the split night. Can you please write a new order with no mention of the split on it? Thanks! [place] 2199601-05-2024 36 Can you please sign the pended sleep study order? So I can get pt rescheduled to the correct test on time, thank you! [place] 2199612-30-2023 36 Called Pamela warner to check status on split night authorization. The baseline [id number] is approved, but the titration portion got denied. Auth# [id number] Valid 01/14/24 - 07/12/24 Dr. Ogden, I pended an in lab PSG for you to sign, if you agree with this. Then based off those results, if shows ALICE we can then submit the titration portion and get it approved. Thank you [place] 2199612-15-2023 36 Good Morning! I am w aichaking on the auth for the patient's upcoming testing and the OV from yesterday is not signed and I need this to submit to insurance. Are you able to complete and sign that today? Thanks! [facility] Office Visiton 12-14-2023 Follow-up visit [id number] Osiris Miller 1960 M Date Provider Department Center 12/14/2023 [id number] VACA [facility] None No family history on file Level of Service:94579 [place] OFFICE/OUTPATIENT NEW MODERATE MDM 45 MINUTES Reason for Visit and Comments: New Patient [542] - Sleep Normal [facility] PATINSon 12-14-2023 PATINS YOUR APPOINTMENT TOChuck PALOMO WAS WITH THE [facility] LUNG NODULE CLINIC, COPD CLINIC, PULMONARY AND SLEEP MEDICINE OFFICE. PLEASE CALL OUR OFFICE AT [phone] IF YOU HAVE NOT RECEIVED YOUR TEST RESULTS 7 DAYS AFTER TESTING IS COMPLETED. PLEASE REMEMBER TO REQUEST REFILLS AT YOUR OFFICE VISITS. PHONE/FAX REQUESTS REQUIRE 48-72 HOURS FOR RESPONSE. A FRIENDLY REMINDER COPAYS ARE DUE AT TIME OF SERVICE. THANK YOU. Our Patients Are Important! We want to improve and you can help. After your visit we want you to feel: Listened to, Respected and have your health care explained. You may receive a survey asking you about your visit. Please complete the survey. We will use your feedback to make improvements. COVID-19 VACCINATION INFORMATION: PH. [phone] [email or web address] CINE [facility] Central Scheduling [phone] [facility] Sleep Scheduling [phone] [facility] Progress Noteon 12-14-2023 Progress Note [facility] Department of Pulmonary Medicine PATIENT VISIT-PULMONARY 12/14/2023 REFERRING PHYSICIAN: Bobbi Briones MD REASON FOR REFERRAL: cpap issues 3 months follow up Copap adjustement this week Buck Miller is a very pleasant 63 y.o. male with past medical history significant for alice, hx of uPPP , remote, allergic rhinitis, shortness of breath, RLS , who presents to pulmonary clinic for evaluation of alice on pap , persistent non restorative sleep, oudated pap. Pt reports hypersomnia, non restorative sleep. Issues with pap pressure. Advised to bring. Re-eval . Increased from 10 cm to 2 and baseline starting from 5 to 7. Full face. New mask trial. Needs new machine, follow up with DME after repeat pap tritration PSG. Pt with allergic rhinitis, congestion, post nasal drainage. Mild burgess with heavy exertion, minimal . No hx of smoking or copd or asthma. Accopanied by SO. 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 Assessment and Plan: Diagnosis Plan 1. Allergic rhinitis due to animal hair and dander Flonaze, azelastine / zyrtec prn 2. ALICE (obstructive sleep apnea) with persistent hypersomnia despite PAP therapy Polysomnography repeat PSG titration study. 3. Restless leg Re-pedro psg. Prior rx failed. History of Present Illness Smoking history- [] Occupational exposure- [] Asthma History [] COPD History [] PastMedical History Alice, allergies Past Surgical History UPPP No Known Allergies Medications reviewed at time of encounter Medication Documentation Review Audit Prior to Admission medications have not yet been reviewed Medications reviewed Social History Social History Tobacco Use Smoking status: Not on file Smokeless tobacco: Not on file Substance Use Topics Alcohol use: Not on file FamilyHistory No family history on file. In addition to those listed in HPI: Review of Systems HENT: Positive for congestion. Respiratory: Positive for apnea. Physical Exam Constitutional: Appearance: He is normal weight. He is not ill-appearing. HENT: Head: Normocephalic. Nose: Congestion present. Cardiovascular: Rate and Rhythm: Normal rate. Pulmonary: Effort: Pulmonary effort is normal. No respiratory distress. Abdominal: General: Abdomen is flat. Skin: General: Skin is warm. Coloration: Skin is not jaundiced or pale. Neurological: General: No focal deficit present. Mental Status: He is alert and oriented to person, place, and time. Psychiatric: Mood and Affect: Mood normal. Physical Exam Vitals: 12/14/23 0834 BP: 124/88 Pulse: 68 SpO2: 97% Weight: 235 lb (107 kg) Height: 5' 9 (1.753 m) LABS and Studies: Available studies were reviewed [x] IgE reviewed [] Peripheral eosinophils reviewed [x] Radiology: available imaging reviewed personally [x] PFT's : available [] Pulmonary Functions Testing Results: No results found for: FEV1, FVC, JHQ1RWM, TLC, DLCO Orders Placed This Encounter Procedures Polysomnography Standing Status: Future Standing Expiration Date: 12/13/2024 Order Specific Question: Patient will have accompaniment? Answer: Yes Order Specific Question: Patient on PAP? Answer: Yes Order Specific Question: Retitration study? Answer: Yes Order Specific Question: Type of titration Answer: CPAP Order Specific Question: Split night protocol? Answer: Yes Order Specific Question: Patient to be split if AHI is greater than Answer: 5 @SMOKINGHX@ Counseling given: Not Answered Counseling given: Not Answered No results found for: CBCDIF, QAFUMIGATUS No results found for: EOSABS, IGE, IMMUNOGLOBUL The USPSTF recommends annual screening for lung cancer with low-dose computed tomography (LDCT) in adults aged 50 to 80 years who have a 20 pack-year smoking history and currently smoke or have quit within the past 15 years. Screening should be discontinued once a person has not smoked for 15 years or develops a health problem that substantially limits life expectancy or the ability or willingness to have curative lung surgery. Patient meets criteria [] Orders Placed This Encounter Procedures Polysomnography Uppp Alice Allergic rhintiis Normal [facility] Absolute lymphocyte countOrd ered By: Bobbi Briones on 11-19-2023 Lymphocytes Auto (Unsp spec) [#/Vol] 2.03 10*3/uL 0.83-4.51 [facility] Automated lymphocyte count a s percentage of total leukocytesOrdered By: Bobbi Briones on 11-19-2023 Lymphocytes/100 WBC Auto (Unsp spec) 28.2 % 19-41 [facility] Basophil percentageOrdered B y: Bobbi Briones on 11-19-2023 Basophils/100 WBC (Bld) 0.3 % 0-1 [facility] Bilirubin [Mass/Vol] 0.60 mg/dL 0.20-1.00 [facility] Comment on above: For patients on eltr ombopag therapy, use of Dimension [place] TBIL is not recommended. Chloride [Moles/Vol] 106 mmol/L 98-107 [facility] Cholesterol [Mass/Vol] 133 mg/dL <200 [facility] Comment on above: <200 mg/dL Desirable 200-240 mg/dL Borderline >240 mg/dL High Risk Eosinophils/100 WBC (Bld) 2.1 % 0-5 [facility] Glucose [Mass/Vol] 123 mg/dL 74-106 [facility] Comment on above: Fasting Glucose resu lt from 100 to 125 mg/dL suggests IMPAIRED HOMEOSTASIS per A.D.A. criteria. Hemoglobin (Bld) [Mass/Vol] 14.1 g/dL 13.0-16.5 [facility] Monocytes/100 WBC (Bld) 6.7 % 0-10 [facility] Neutrophils (Bld) [#/Vol] 4.5 10*3/uL 2.0-7.7 [facility] Neutrophils/100 WBC (Bld) 62.0 % 47-70 [facility] Potassium [Moles/Vol] 4.0 mmol/L 3.5-5.1 [facility] Protein [Mass/Vol] 7.1 g/dL 6.4-8.2 [facility] Sodium [Moles/Vol] 136 mmol/L 136-145 [facility] Triglyceride [Mass/Vol] 110 mg/dL <199 [facility] Comment on above: The drugs N-Acetylcy steine and Metamizole may falsely depress this assay.Serum Triglycerides Reference Interval Normal <150 mg/dL Borderline high 150 - 199 mg/dL High 200 - 499 mg/dL Very High > or = 500 mg/dL WBC (Bld) [#/Vol] 7.2 10*3/uL 4.4-11.0 [facility] CBC W/Diff, Automatedon 10-31 Absolute Lymph 2.03 X10 3/uL Normal 0.83-4.51 [facility] Comment on above: Performed By: #### L 500.4050, L100.0100, L502.0250, L501.9520, L500.4100 #### [facility] [address] [place], [address] Absolute Neut 4.5 X10 3/uL Normal 2.0-7.7 [facility] Comment on above: Performed By: #### L 500.4050, L100.0100, L502.0250, L501.9520, L500.4100 #### [facility] [address] [place], [address] Basophils/100 WBC (Bld) 0.3 % Normal 0-1 [facility] Comment on above: Performed By: #### L 500.4050, L100.0100, L502.0250, L501.9520, L500.4100 #### [facility] [address] [place], [address] Eosinophils/100 WBC (Bld) 2.1 % Normal 0-5 [facility] Comment on above: Performed By: #### L 500.4050, L100.0100, L502.0250, L501.9520, L500.4100 #### [facility] [address] [place] [place], [address] Erythrocyte distribution width (RBC) [Ratio] 12.7 % Normal 11.6-14.6 [facility] Comment on above: Performed By: #### L 500.4050, L100.0100, L502.0250, L501.9520, L500.4100 #### [facility] [address] [place], [address] Hematocrit (Bld) [Volume fraction] 41.9 % Normal 40-54 [facility] Comment on above: Performed By: #### L 500.4050, L100.0100, L502.0250, L501.9520, L500.4100 #### [facility] [address] [place], [address] Hemoglobin (Bld) [Mass/Vol] 14.1 g/dL Normal 13.0-16.5 [facility] Comment on above: Performed By: #### L 500.4050, L100.0100, L502.0250, L501.9520, L500.4100 #### [facility] [address] [place], [address] IG% 0.700 Normal 0.0-0.9 [facility] Comment on above: Result Comment: IG% - Immature Granulocytes (promyelocytes, myelocytes and metamyelocytes) > 1% indicates that a LEFT SHIFT is Present. Performed By: #### L 500.4050, L100.0100, L502.0250, L501.9520, L500.4100 #### [facility] [address] [place], [address] Lymphocytes/100 WBC (Bld) 28.2 % Normal 19-41 [facility] Comment on above: Performed By: #### L 500.4050, L100.0100, L502.0250, L501.9520, L500.4100 #### [facility] [address] [place], [address] MCH (RBC) [Entitic mass] 29.9 pg Normal 27.0-32.0 [facility] Comment on above: Performed By: #### L 500.4050, L100.0100, L502.0250, L501.9520, L500.4100 #### [facility] [address] [place], [address] MCHC (RBC) [Mass/Vol] 33.7 g/dL Normal 32-36 [facility] Comment on above: Performed By: #### L 500.4050, L100.0100, L502.0250, L501.9520, L500.4100 #### [facility] [address] [place], [address] MCV (RBC) [Entitic vol] 89.0 fL Normal 80-94 [facility] Comment on above: Performed By: #### L 500.4050, L100.0100, L502.0250, L501.9520, L500.4100 #### [facility] [address] [place], [address] Monocytes/100 WBC (Bld) 6.7 % Normal 0-10 [facility] Comment on above: Performed By: #### L 500.4050, L100.0100, L502.0250, L501.9520, L500.4100 #### [facility] [address] [place], [address] Neutrophils/100 WBC (Bld) 62.0 % Normal 47-70 [facility] Comment on above: Performed By: #### L 500.4050, L100.0100, L502.0250, L501.9520, L500.4100 #### [facility] [address] [place], [address] Nucleated RBC (Bld) [#/Vol] 0 10*3/uL Normal 0-5 [facility] Comment on above: Performed By: #### L 500.4050, L100.0100, L502.0250, L501.9520, L500.4100 #### [facility] [address] [place], [address] Platelet mean volume (Bld) [Entitic vol] 10.3 fL Normal 6.2-12.0 [facility] Comment on above: Performed By: #### L 500.4050, L100.0100, L502.0250, L501.9520, L500.4100 #### [facility] [address] [place], [address] Platelets (Bld) [#/Vol] 188 10*3/uL Normal 150-450 [facility] Comment on above: Performed By: #### L 500.4050, L100.0100, L502.0250, L501.9520, L500.4100 #### [facility] [address] [place], [address] RBC (Bld) [#/Vol] 4.71 10*6/uL Normal 4.6-6.2 [facility] Comment on above: Performed By: #### L 500.4050, L100.0100, L502.0250, L501.9520, L500.4100 #### [facility] [address] [place], [address] RDW SD 41.3 fl Normal 35.1-43.9 [facility] Comment on above: Performed By: #### L 500.4050, L100.0100, L502.0250, L501.9520, L500.4100 #### [facility] [address] [place], [address] WBC (Bld) [#/Vol] 7.2 10*3/uL Normal 4.4-11.0 [facility] Comment on above: Performed By: #### L 500.4050, L100.0100, L502.0250, L501.9520, L500.4100 #### [facility] [address] [place], [address] Comprehensive Metabolic Prof ilon 11-19-2023 Albumin [Mass/Vol] 3.5 g/dL Normal 3.2-5.0 [facility] Comment on above: Performed By: #### L 500.4050, L100.0100, L502.0250, L501.9520, L500.4100 #### [facility] [address] [place], [address] Albumin/Globulin [Mass ratio] 1.0 {ratio} Normal 0.9-2.4 [facility] Comment on above: Performed By: #### L 500.4050, L100.0100, L502.0250, L501.9520, L500.4100 #### [facility] [address] [place], [address] ALK P 41 U/L Low 45-117 [facility] Comment on above: Performed By: #### L 500.4050, L100.0100, L502.0250, L501.9520, L500.4100 #### [facility] [address] [place], [address] ALT [Catalytic activity/Vol] 27 U/L Normal 16-61 [facility] Comment on above: Performed By: #### L 500.4050, L100.0100, L502.0250, L501.9520, L500.4100 #### [facility] [address] [place] [place], [address] AST [Catalytic activity/Vol] 13 U/L Low 15-37 [facility] Comment on above: Performed By: #### L 500.4050, L100.0100, L502.0250, L501.9520, L500.4100 #### [facility] [address] [place], [address] Bilirubin [Mass/Vol] 0.60 mg/dL Normal 0.20-1.00 [facility] Comment on above: Result Comment: For patients on eltrombopag therapy, use of Dimension [place] TBIL is not recommended. Performed By: #### L 500.4050, L100.0100, L502.0250, L501.9520, L500.4100 #### [facility] [address] [place], [address] BUN/CRE 17.7 RATIO Normal 10-20 [facility] Comment on above: Performed By: #### L 500.4050, L100.0100, L502.0250, L501.9520, L500.4100 #### [facility] [address] [place], [address] CA,Total 9.2 mg/dL Normal 8.5-10.1 [facility] Comment on above: Performed By: #### L 500.4050, L100.0100, L502.0250, L501.9520, L500.4100 #### [facility] [address] [place], [address] Chloride [Moles/Vol] 106 mmol/L Normal 98-107 [facility] Comment on above: Performed By: #### L 500.4050, L100.0100, L502.0250, L501.9520, L500.4100 #### [facility] [address] [place], [address] CO2 [Moles/Vol] 23.0 mmol/L Normal 21.0-32.0 [facility] Comment on above: Performed By: #### L 500.4050, L100.0100, L502.0250, L501.9520, L500.4100 #### [facility] [address] [place], [address] Creatinine [Mass/Vol] 0.68 mg/dL Low 0.70-1.30 [facility] Comment on above: Result Comment: The validity of the calculated GFR GFRAA in patients over 70 years has not been determined. Clinical correlation is essential. Performed By: #### L 500.4050, L100.0100, L502.0250, L501.9520, L500.4100 #### [facility] [address] [place], [address] EST GFR - AA 153 mL/min Normal >60 [facility] Comment on above: Result Comment: Afri can Togolese GFR Calc Performed By: #### L 500.4050, L100.0100, L502.0250, L501.9520, L500.4100 #### [facility] [address] [place], [address] GAP 7 Normal 5-15 [facility] Comment on above: Performed By: #### L 500.4050, L100.0100, L502.0250, L501.9520, L500.4100 #### [facility] [address] [place], [address] GFR/1.73 sq M.predicted among non-blacks MDRD (S/P/Bld) [Vol rate/Area] 127 mL/min/{1.73_m2} Normal >60 [facility] Comment on above: Result Comment: Non- GFR Calc Performed By: #### L 500.4050, L100.0100, L502.0250, L501.9520, L500.4100 #### [facility] [address] [place], [address] Globulin (S) [Mass/Vol] 3.6 g/dL Normal 2.2-4.2 [facility] Comment on above: Performed By: #### L 500.4050, L100.0100, L502.0250, L501.9520, L500.4100 #### [facility] [address] [place], [address] Glucose [Mass/Vol] 123 mg/dL High 74-106 [facility] Comment on above: Result Comment: Fast ing Glucose result from 100 to 125 mg/dL suggests IMPAIRED HOMEOSTASIS per A.D.A. criteria. Performed By: #### L 500.4050, L100.0100, L502.0250, L501.9520, L500.4100 #### [facility] [address] [place], [address] Potassium [Moles/Vol] 4.0 mmol/L Normal 3.5-5.1 [facility] Comment on above: Performed By: #### L 500.4050, L100.0100, L502.0250, L501.9520, L500.4100 #### [facility] [address] [place], [address] Sodium [Moles/Vol] 136 mmol/L Normal 136-145 [facility] Comment on above: Performed By: #### L 500.4050, L100.0100, L502.0250, L501.9520, L500.4100 #### [facility] [address] [place], [address] T PROT 7.1 g/dL Normal 6.4-8.2 [facility] Comment on above: Performed By: #### L 500.4050, L100.0100, L502.0250, L501.9520, L500.4100 #### [facility] [address] [place], [address] Urea nitrogen [Mass/Vol] 12 mg/dL Normal 7-18 [facility] Comment on above: Performed By: #### L 500.4050, L100.0100, L502.0250, L501.0328, L500.6360 #### [facility] [address] [place] [place], [address] Determination of erythrocyte mean corpuscular volume (MCV)Ordered By: Bobbi Briones on 11-19-2023 MCV (RBC) [Entitic vol] 89.0 fL 80-94 [facility] Erythrocyte distribution wid th ratioOrdered By: [facility]2023 Erythrocyte distribution width (RBC) [Ratio] 12.7 % 11.6-14.6 [facility] Erythrocyte distribution wid th standard deviationOrdered By: [facility] on 11-19-2023 Erythrocyte distribution width (RBC) [Entitic vol] 41.3 fL 35.1-43.9 [facility] Hematocrit Auto (Bld) [Volum e fraction]Ordered By: Bobbi Briones on 11-19-2023 Hematocrit (Bld) [Volume fraction] 41.9 % 40-54 [facility] Immature granulocytes/100 WB C Auto (Bld)Ordered By: Bobbi Briones on 11-19-2023 Immature granulocytes/100 WBC (Bld) 0.700 % 0.0-0.9 [facility] Comment on above: IG% - Immature Granu locytes (promyelocytes, myelocytes and metamyelocytes) > 1% indicates that a LEFT SHIFT is Present. Laboratory - Chemistry and C hemistry - challengeOrdered By: Bobbi Briones on 11-19-2023 Albumin/Globulin [Mass ratio] 1.0 {ratio} 0.9-2.4 [facility] ALP [Catalytic activity/Vol] 41 U/L 45-117 [facility] ALT [Catalytic activity/Vol] 27 U/L 16-61 [facility] Cholesterol in HDL [Mass/Vol] 50 mg/dL >40 [facility] Comment on above: The drugs N-Acetylcy steine and Metamizole may falsely depress this assay. Reference Range HDL <40 mg/dL Low HDL Cholesterol HDL >or= 60 mg/dL High HDL Cholesterol Cholesterol in LDL [Mass/Vol] 61 mg/dL 0-130 [facility] CO2 [Moles/Vol] 23.0 mmol/L 21.0-32.0 [facility] Globulin (S) [Mass/Vol] 3.6 g/dL 2.2-4.2 [facility] Urea nitrogen/Creatinine [Mass ratio] 17.7 mg/mg 10-20 [facility] - Hematology and Cell countsOrdered By: Bobbi Briones on 11-19-2023 MCH (RBC) [Entitic mass] 29.9 pg 27.0-32.0 [facility] MCHC (RBC) [Mass/Vol] 33.7 g/dL 32-36 [facility] Nucleated RBC/100 WBC (Bld) [Ratio] 0 % 0-5 [facility] Platelet mean volume (Bld) [Entitic vol] 10.3 fL 6.2-12.0 [facility] Platelets (Bld) [#/Vol] 188 10*3/uL 150-450 [facility] Lipid Profileon 11-19-2023 Cholesterol [Mass/Vol] 133 mg/dL Normal 200 [facility] Comment on above: Result Comment: <200 mg/dL Desirable 200-240 mg/dL Borderline >240 mg/dL High Risk Performed By: #### L 500.4050, L100.0100, L502.0250, L501.9520, L500.4100 #### [facility] [address] [place], [address] Cholesterol in HDL [Mass/Vol] 50 mg/dL Normal [facility] Comment on above: Result Comment: The drugs N-Acetylcysteine and Metamizole may falsely depress this assay. Reference Range HDL <40 mg/dL Low HDL Cholesterol HDL >or= 60 mg/dL High HDL Cholesterol Performed By: #### L 500.4050, L100.0100, L502.0250, L501.9520, L500.4100 #### [facility] [address] [place], [address] Cholesterol in LDL [Mass/Vol] 61 mg/dL Normal 0-130 [facility] Comment on above: Performed By: #### L 500.4050, L100.0100, L502.0250, L501.9520, L500.4100 #### [facility] [address] [place], [address] Cholesterol in VLDL [Mass/Vol] 22 mg/dL Normal 5-40 [facility] Comment on above: Performed By: #### L 500.4050, L100.0100, L502.0250, L501.9520, L500.4100 #### [facility] [address] [place], [address] Triglyceride [Mass/Vol] 110 mg/dL Normal [facility] Comment on above: Result Comment: The drugs N-Acetylcysteine and Metamizole may falsely depress this assay. Serum Triglycerides Reference Interval Normal <150 mg/dL Borderline high 150 - 199 mg/dL High 200 - 499 mg/dL Very High > or = 500 mg/dL Performed By: #### L 500.4050, L100.0100, L502.0250, L501.9520, L500.4100 #### [facility] [address] [place], [address] Microalb:Creat Ratio,Random URon 11-19-2023 Creatinine [Mass/Vol] 82.00 mg/dL Normal NO RAN GE EST. [facility] Comment on above: Performed By: #### L 500.4050, L100.0100, L502.0250, L501.9520, L500.4100 #### [facility] [address] [place], [address] MALB:CRE 25.4 mg/g CRE Normal <30 mg/g CRE [facility] Comment on above: Performed By: #### L 500.4050, L100.0100, L502.0250, L501.9520, L500.4100 #### [facility] [address] [place], [address] MICROALBUMIN,UR 20.8 mg/L Normal NO RANGE EST. [facility] Comment on above: Performed By: #### L 500.4050, L100.0100, L502.0250, L501.9520, L500.4100 #### [facility] [address] [place] [place], [address] No Panel InformationOrdered By: Bobbi Briones on 11-19-2023 Estimated GFR (MDRD) Amer 153 mL/min >60 [facility] Comment on above: GFR Calc Estimated GFR (MDRD) Non-Af Amer 127 mL/min >60 [facility] Comment on above: Non- GFR Calc Urine Microalbumin/Creatini ne Ratio 25.4 mg/g CRE <30 [facility] VLDL Cholesterol 22 mg/dL 5-40 [facility] RBC Auto (Bld) [#/Vol]Ordere d By: Bobbi Briones on 11-19-2023 RBC (Bld) [#/Vol] 4.71 10*6/uL 4.6-6.2 [facility] Serum or plasma calcium antonia urement (mass/volume)Ordered By: Bobbi Briones on 11-19-2023 Calcium [Mass/Vol] 9.2 mg/dL 8.5-10.1 [facility] Serum or plasma creatinine m easurement (mass/volume)Ordered By: Bobbi Briones on 11-19-2023 Creatinine [Mass/Vol] 0.68 mg/dL 0.70-1.30 [facility] Comment on above: The validity of the calculated GFR & GFRAA in patients over 70 years has not been determined. Clinical correlation is essential. Serum or plasma thyroid stim ulating hormone (TSH) measurement (units/volume)Ordered By: Bobbi Briones on 11-19-2023 TSH Qn 2.03 uIU/mL 0.358-3.74 [facility] Serum or plasma urea nitroge n measurement (mass/volume)Ordered By: Bobbi Briones on 11-19-2023 Urea nitrogen [Mass/Vol] 12 mg/dL 7-18 [facility] Thin prep Papanicolaou smear with manual screeningOrdered By: Bobbi Briones on 11-19-2023 Thin prep Papanicolaou smear with manual screening 3.5 g/dL 3.2-5.0 [facility] Thin prep Papanicolaou smear with manual screening 13 U/L 15-37 [facility] Thin prep Papanicolaou smear with manual screening 7 5-15 [facility] Thin prep Papanicolaou smear with manual screening 20.8 mg/L NO RANGE EST. [facility] Thyroid Stim Hormone (TSH)on 11-19-2023 TSH 2.03 uIU/mL Normal 0.358-3.74 [facility] Comment on above: Performed By: #### L 500.4050, L100.0100, L502.0250, L501.9520, L500.4100 #### [facility] [address] [place] [address], [address] Urine creatinine measurement (mass/volume)Ordered By: Bobbi Briones on 11-19-2023 Creatinine (U) [Mass/Vol] 82.00 mg/dL NO RANGE EST. [facility] Absolute lymphocyte countOrd ered By: Dr. Briones on 09-25-2022 Lymphocytes Auto (Unsp spec) [#/Vol] 1.80 10*3/uL 0.83-4.51 [facility] Basophil percentageOrdered B y: Dr. Briones on 09-25-2022 Basophils/100 WBC (Bld) 0.4 % 0-1 [facility] Bilirubin [Mass/Vol] 0.90 mg/dL 0.20-1.00 [facility] Comment on above: For patients on eltr ombopag therapy, use of Dimension [place] TBIL is not recommended. Chloride [Moles/Vol] 106 mmol/L 98-107 [facility] Cholesterol [Mass/Vol] 132 mg/dL <200 [facility] Comment on above: <200 mg/dL Desirable 200-240 mg/dL Borderline >240 mg/dL High Risk Eosinophils/100 WBC (Bld) 2.1 % 0-5 [facility] Glucose [Mass/Vol] 166 mg/dL 74-106 [facility] Comment on above: Fasting Glucose resu lt greater than or equal to 126 mg/dL suggests DIABETES MELLITUS per A.D.A. criteria. Neutrophils (Bld) [#/Vol] 5.0 10*3/uL 2.0-7.7 [place] Neutrophils/100 WBC (Bld) 66.0 % 47-70 [place] Potassium [Moles/Vol] 4.2 mmol/L 3.5-5.1 [facility] Protein [Mass/Vol] 7.4 g/dL 6.4-8.2 [facility] Sodium [Moles/Vol] 139 mmol/L 136-145 [facility] Triglyceride [Mass/Vol] 75 mg/dL <199 [place] Comment on above: The drugs N-Acetylcy steine and Metamizole may falsely depress this assay.Serum Triglycerides Reference Interval Normal <150 mg/dL Borderline high 150 - 199 mg/dL High 200 - 499 mg/dL Very High > or = 500 mg/dL WBC (Bld) [#/Vol] 7.6 10*3/uL 4.4-11.0 [facility] Blood erythrocytes count (nu mber/volume)Ordered By: Dr. Briones on 09-25-2022 RBC (Bld) [#/Vol] 4.90 10*6/uL 4.6-6.2 [facility] Blood hemoglobin measurement (mass/volume)Ordered By: Dr. Briones on 09-25-2022 Hemoglobin (Bld) [Mass/Vol] 15.1 g/dL 13.0-16.5 [place] Blood lymphocytes/100 leukoc ytesOrdered By: Dr. Brionse on 09-25-2022 Lymphocytes/100 WBC (Bld) 23.7 % 19-41 [place] Blood monocytes/100 leukocyt esOrdered By: Dr. Briones on 09-25-2022 Monocytes/100 WBC (Bld) 6.7 % 0-10 [place] Blood platelet mean volumeOr dered By: Dr. Briones on 09-25-2022 Platelet mean volume (Bld) [Entitic vol] 10.3 fL 6.2-12.0 [place] Determination of erythrocyte mean corpuscular volume (MCV)Ordered By: Dr. Briones on 09-25-2022 MCV (RBC) [Entitic vol] 90.4 fL 80-94 [place] Hematocrit Auto (Bld) [Volum e fraction]Ordered By: Dr. Briones on 09-25-2022 Hematocrit (Bld) [Volume fraction] 44.3 % 40-54 [place] [facility] - Chemistry and C hemistry - challengeOrdered By: Dr. Briones on 09-25-2022 ALP [Catalytic activity/Vol] 55 U/L 45-117 [place] ALT [Catalytic activity/Vol] 32 U/L 16-61 [place] CO2 [Moles/Vol] 26.0 mmol/L 21.0-32.0 [place] Globulin (S) [Mass/Vol] 3.6 g/dL 2.2-4.2 [place] Urea nitrogen/Creatinine [Mass ratio] 15.2 mg/mg 10-20 [facility] [facility] - Hematology and Cell countsOrdered By: Dr. Briones on 09-25-2022 Erythrocyte distribution width (RBC) [Entitic vol] 42.2 fL 35.1-43.9 [place] Erythrocyte distribution width (RBC) [Ratio] 13.0 % 11.6-14.6 [place] Immature granulocytes/100 WBC (Bld) 1.100 % 0.0-0.9 [place] Comment on above: IG% - Immature Granu locytes (promyelocytes, myelocytes and metamyelocytes) > 1% indicates that a LEFT SHIFT is Present. MCH (RBC) [Entitic mass] 30.8 pg 27.0-32.0 [place] Nucleated RBC/100 WBC (Bld) [Ratio] 0 % 0-5 [place] MCHC Auto (RBC) [Mass/Vol]Or dered By: Dr. Briones on 09-25-2022 MCHC (RBC) [Mass/Vol] 34.1 g/dL 32-36 [facility] No Panel InformationOrdered By: Dr. Briones on 09-25-2022 Estimated GFR (MDRD) Amer 128 mL/min >60 [place] Comment on above: GFR Calc Estimated GFR (MDRD) Non-Af Amer 106 mL/min >60 [place] Comment on above: Non- GFR Calc Urine Microalbumin/Creatini ne Ratio 33.2 mg/g CRE <30 [place] Platelets bldOrdered By: Dr. Briones on 09-25-2022 Platelets (Bld) [#/Vol] 186 10*3/uL 150-450 [place] Serum or plasma albumin antonia urement (mass/volume)Ordered By: Dr. Briones on 09-25-2022 Albumin [Mass/Vol] 3.8 g/dL 3.2-5.0 [facility] Serum or plasma albumin/glob ulin mass ratioOrdered By: Dr. Briones on 09-25-2022 Albumin/Globulin [Mass ratio] 1.1 {ratio} 0.9-2.4 [place] Serum or plasma calcium antonia urement (mass/volume)Ordered By: Dr. Briones on 09-25-2022 Calcium [Mass/Vol] 9.5 mg/dL 8.5-10.1 [facility] Serum or plasma cholesterol in HDL measurement (mass/volume)Ordered By: Dr. Briones on 09-25-2022 Cholesterol in HDL [Mass/Vol] 49 mg/dL >40 [place] Comment on above: The drugs N-Acetylcy steine and Metamizole may falsely depress this assay. Reference Range HDL <40 mg/dL Low HDL Cholesterol HDL >or= 60 mg/dL High HDL Cholesterol Serum or plasma cholesterol in VLDL measurement (mass/volume)Ordered By: Dr. Briones on 09-25-2022 Cholesterol in VLDL [Mass/Vol] 15 mg/dL 5-40 [place] Serum or plasma creatinine m easurement (mass/volume)Ordered By: Dr. Briones on 09-25-2022 Creatinine [Mass/Vol] 0.79 mg/dL 0.70-1.30 [facility] Comment on above: The validity of the calculated GFR & GFRAA in patients over 70 years has not been determined. Clinical correlation is essential. Serum or plasma low density lipoprotein (LDL) cholesterol measurement (mass/volume)Ordered By: Dr. Briones on 09-25-2022 Cholesterol in LDL [Mass/Vol] 68 mg/dL 0-130 [place] Serum or plasma urea nitroge n measurement (mass/volume)Ordered By: Dr. Briones on 09-25-2022 Urea nitrogen [Mass/Vol] 12 mg/dL 7-18 [place] Thin prep Papanicolaou smear with manual screeningOrdered By: Dr. Briones on 09-25-2022 Thin prep Papanicolaou smear with manual screening 14 U/L 15-37 [place] Thin prep Papanicolaou smear with manual screening 7 5-15 [place] Thin prep Papanicolaou smear with manual screening 10.9 mg/L NO RANGE EST. [place] Urine creatinine measurement (mass/volume)Ordered By: Dr. Briones on 09-25-2022 Creatinine (U) [Mass/Vol] 32.80 mg/dL NO RANGE EST. [place] CORONAVIRUS 2019 BY PCRon SARS-CoV-2 (COVID-19) RNA ANJELICA+probe Ql (Unsp spec) Not detected Normal Not Detected [facility] Comment on above: Result Comment: . This assay is designed to detect the N, ORF1ab and/or S genes of SARS-CoV-2 via nucleic acid amplification. A Negative (NOT DETECTED) result does not preclude 2019-nCoV infection since the adequacy of sample collection and/or low viral burden may result in presence of viral nucleic acids below the clinical sensitivity of this test method. Negative (NOT DETECTED) result should not be used as the sole basis for treatment or other patient management decisions. Rather negative results should be combined with clinical observations, patient history, and epidemiological information to make patient management decisions. Fact sheet for providers: https://www.fda.gov/media/263911/download Fact sheet for patients: https://www.fda.gov/media/030867/download This test has received FDA Emergency Use Authorization (EUA) and has been verified by [facility] ([facility]). This test is only authorized for the duration of time that circumstances exist to justify the authorization of the emergency use of in vitro diagnostic tests for the detection of SARS-CoV-2 virus and/or diagnosis of COVID-19 infection under section 564(b)(1) of the Act, 21 U.S.C. 360bbb-3(b)(1), unless the authorization is terminated or revoked sooner. [facility] is certified under CLIA-88 as qualified to perform high complexity testing. Testing is performed in the [facility] laboratories located at [address] [place] [address]. Performed By: #### C OV19 #### [facility] [address] [place] [address] DATE OF SYMPTOM ONSET [YYYYMMDD]? [id number] Normal [facility] Comment on above: Performed By: #### C OV19 #### [facility] [address] [place] [address] CORONAVIRUS 2019 BY PCRon Lab Specimen Source Nasal, Nasopharyngeal Normal [facility] Comment on above: Performed By: #### C OV19 #### [facility] [address] [place] [address] Coronavirus 2019 RNA by PCR, Symptomaticon 05-17-2021 Date and time of symptom onset 20210510 1 [facility] Work Phone: Coronavirus 2019 RNA by PCR, Symptomatic Not detected Normal See Below [facility] Work Phone: Comment on above: SOURCE: Nasal, Nasop haryngealReference Range: Not Detected.This assay is designed to detect the N, ORF1ab and/or S genes of SARS-CoV-2 via nucleic acid amplification. A Negative (NOT DETECTED) result does not preclude 2019-nCoV infection since the adequacy of sample collection and/or low viral burden may result in presence of viral nucleic acids below the clinical sensitivity of this test method. Negative (NOT DETECTED) result should not be used as the sole basis for treatment or other patient management decisions. Rather negative results should be combined with clinical observations, patient history, and epidemiological information to make patient management decisions.Fact sheet for providers: https://www.fda.gov/media/105867/downloadFact sheet for patients: https://www.fda.gov/media/198575/downloadThis test has received FDA Emergency Use Authorization (EUA) and has been verified by [facility] ([facility]). This test is only authorized for the duration of time that circumstances exist to justify the authorization of the emergency use of in vitro diagnostic tests for the detection of SARS-CoV-2 virus and/or diagnosis of COVID-19 infection under section 564(b)(1) of the Act, 21 U.S.C. 360bbb-3(b)(1), unless the authorization is terminated or revoked sooner. [facility] is certified under CLIA-88 as qualified to perform high complexity testing. Testing is performed in the [facility] laboratories located at [address] [place] [address]. Office Visit (Urgent Care)on 05-17-2021 Follow-up visit Diagnoses/Problems Assessed Acute bronchitis, unspecified organism (466.0) (J20.9) Acute bronchitis (466.0) (J20.9) Orders Acute bronchitis Coronavirus 2019 RNA by PCR, Symptomatic; Status:In Progress - Specimen/Data Collected; Done: 17May2021 Perform:Lab Services - Lab To Draw (Non-Blood Test); Due:15Aug2021;Ordered; For:Acute bronchitis; Ordered By:Karen Lozada; RESIDENT IN CONGREGATE CARE SETTING? : No ICU? : No HOSPITALIZED (OR PLANNED TO BE ADMITTED)? : No EMPLOYED IN HEALTHCARE? : No FIRST COVID NASAL SWAB TEST? : No Symptom 1 : Cough DATE OF SYMPTOM ONSET? : 10May2021 IS THE PATIENT SYMPTOMATIC DEFINED BY THE CDC (FEVER>100, NEW WORSENING COUGH OR SHORTNESS OF BREATH, NEW LOSS OF TASTE OR SMELL, SORE THROAT, DIARRHEA, BODY ACHES/MALAISE, HEADACHE, NAUSEA/VOMITING, OR RUNNY NOSE/CONGESTION)? : Yes Acute bronchitis, unspecified organism Start: Azithromycin 250 MG Oral Tablet; TAKE 2 TABLETS ON DAY 1 THEN TAKE 1 TABLET A DAY FOR 4 DAYS Rx By: Karen Lozada; Dispense: 0 Days ; #:1 X 6 Tablet Pack; Refill: 0;For: Acute bronchitis, unspecified organism; JANE = N; Sent To: [facility] [place],; Last Updated By: SystemDelphier; 05/17/2021 12:15:29 PM Start: methylPREDNISolone 4 MG Oral Tablet Therapy Pack; Take as per package instructions Rx By: Kierra, Karen; Dispense: 0 Days ; #:1 X 21 Tablet Pack; Refill: 0;For: Acute bronchitis, unspecified organism; JANE = N; Sent To: [facility] [place],; Last Updated By: System, [employer]; 05/17/2021 12:15:36 PM Patient Discussion/Summary Today you had a test for COVID 19. Your test results will be back in 48-72 hours. During this time, isolate yourself at home, until you get your test results. Negative test results mean you can go back to your usual activity, though if you had been exposed to COVID within the past 10 days, you still need to isolate for the remaining time. Positive results mean you will have to isolate for at least 10-14 days after your symptoms began. If you feel very ill, including short of breath or chest pain, go to the ER. We will call you with your results as soon as they come in, if they are positive. Care instructions,Red flags, GIANCARLO's discussed and patient agreed/understood. Provider Impressions Lungs CTAB, patient does have a bronchospasm with coughing. Started azithromycin and offered benzonatate Perles patient declined benzonatate stating it does not work for him. Given methylprednisolone pack to help with bronchospasms and bronchitis symptoms. Discussed this may elevate patient's glucose and to monitor glucose closely if anything is elevated or any new symptom onset patient is to go to the emergency department. Patient admits that he is aware and he is taking steroids with his diabetes before without any problems. Chief Complaint Chief Complaints Cough History of Present Illness 60-year-old male presents to urgent care today with a cough. Onset 1 week ago. Patient admits the cough is mostly dry. Denies any chest pain, shortness of breath. Today coughed very hard and hurt his lower back. Now feels like he strained his back. Admits to mild nasal congestion. Had a little sore throat which resolved. States plenty of people in his workplace have a similar infection. No known COVID-19 exposure. Patient is fully vaccinated. PMH DM on oral agents, HLD, HTN Review of Systems Constitutional: no chills and no fever. ENT: congestion and sore throat, but no earache and no sinus pressure. Cardiovascular: no chest pain. Respiratory: cough, but no shortness of breath, no shortness of breath during exertion and no wheezing. Gastrointestinal: no abdominal pain, no vomiting, no diarrhea and no nausea. Musculoskeletal: no myalgias The patient presents with complaints of arthralgias (low back pain. reproducible with movement. ). Neurological: no headache. Active Problems Problems Acute bronchitis (466.0) (J20.9) Acute bronchitis with bronchospasm (466.0) (J20.9) Cough (786.2) (R05.9) Social History Problems Never smoker Allergies Medication No Known Drug Allergies Recorded By: Oralia Briceno; 05/18/2018 5:43:03 PM NonMedication [place] Recorded By: Rigo Perkins; 10/25/2014 1:22:04 PM Current Meds Medication NameInstruction Atorvastatin Calcium 20 MG Oral Tablet Azithromycin 250 MG Oral TabletTAKE 2 TABLETS ON DAY 1 THEN TAKE 1 TABLET A DAY FOR 4 DAYS. Benzonatate 200 MG Oral CapsuleTAKE 1 CAPSULE 3 TIMES DAILY NEEDED FOR COUGH. Doxycycline Monohydrate 100 MG Oral TabletTAKE 1 TABLET EVERY 12 HOURS DAILY. Gabapentin 300 MG Oral Capsule Glimepiride 2 MG Oral Tablet Glimepiride 4 MG Oral Tablet Losartan Potassium 100 MG Oral Tablet Losartan Potassium 50 MG Oral Tablet metFORMIN HCl - 1000 MG Oral Tablet predniSONE 10 MG Oral Tablet3 tabs day number 1 and 2, then 2 tabs day number 3 and 4, then 1 tab day number 5 and 6 predniSONE 20 MG Oral TabletTAKE 1 TABLET Twic (more content not included)... Normal [facility] Tobacco Screening.on 021 Tobacco use status [facility] b) No [facility] Work Phone: CORONAVIRUS 2019 BY PCRon SARS-CoV-2 (COVID-19) RNA ANJELICA+probe Ql (Unsp spec) Not detected Normal Not Detected [facility] Comment on above: Result Comment: . This assay is designed to detect SARS-CoV-2 based on replication of specific regions of the RNA from the SARS-CoV-2 virus. A Not Detected result does not preclude 2019-nCoV infection since the adequacy of sample collection and/or low viral burden may result in presence of viral nucleic acids below the clinical sensitivity of this test method. Fact sheet for providers: https://www.fda.gov/media/510677/download Fact sheet for patients: https://www.fda.gov/media/895237/download This test has received FDA Emergency Use Authorization [EUA] and has been verified by [facility] ([facility]). This test is only authorized for the duration of time that circumstances exist to justify the authorization of the emergency use of in vitro diagnostic tests for the detection of SARS-CoV-2 virus and/or diagnosis of COVID-19 infection under section 564(b)(1) of the Act, 21 U.S.C. 360bbb-3(b)(1), unless the authorization is terminated or revoked sooner. [facility] is certified under CLIA-88 as qualified to perform high complexity testing. Testing is performed in the [facility] laboratories located at [address] [place] [address]. Performed By: #### C OV19 #### [address] [place] [address] DATE OF SYMPTOM ONSET [YYYYMMDD]? [id number] Normal [facility] Comment on above: Performed By: #### C OV19 #### [address] [place] [address] CORONAVIRUS 2019 BY PCRon Lab Specimen Source Nasal, Nasopharyngeal Normal [facility] Comment on above: Performed By: #### C OV19 #### [address] [place] [address] Coronavirus 2019 RNA by PCR, Symptomaticon 03-23-2021 Date and time of symptom onset 20210314 1 [facility] Work Phone: Coronavirus 2019 RNA by PCR, Symptomatic Not detected Normal See Below [facility] Work Phone: Comment on above: SOURCE: Nasal, Nasop haryngealReference Range: Not Detected.This assay is designed to detect SARS-CoV-2 based on replication of specific regions of the RNA from the SARS-CoV-2 virus. A Not Detected result does not preclude 2019-nCoV infection since the adequacy of sample collection and/or low viral burden may result in presence of viral nucleic acids below the clinical sensitivity of this test method. Fact sheet for providers: https://www.fda.gov/media/688259/downloadFact sheet for patients: https://www.fda.gov/media/675212/downloadThis test has received FDA Emergency Use Authorization [EUA] and has been verified by [facility] ([facility]). This test is only authorized for the duration of time that circumstances exist to justify the authorization of the emergency use of in vitro diagnostic tests for the detection of SARS-CoV-2 virus and/or diagnosis of COVID-19 infection under section 564(b)(1) of the Act, 21 U.S.C. 360bbb-3(b)(1), unless the authorization is terminated or revoked sooner. [facility] is certified under CLIA-88 as qualified to perform high complexity testing. Testing is performed in the [facility] laboratories located at [address] [place] [address]. Office Visit (Urgent Care)on 03-23-2021 Follow-up visit Diagnoses/Problems Assessed Cough (786.2) (R05) History of acute bronchitis (V12.69) (Z87.09) Acute bronchitis (466.0) (J20.9) Orders Acute bronchitis Start: Doxycycline Monohydrate 100 MG Oral Tablet; TAKE 1 TABLET EVERY 12 HOURS DAILY Rx By: Kd Pena; Dispense: 0 Days ; #:20 Tablet; Refill: 0;For: Acute bronchitis; JANE = N; Sent To: [facility] [place], Start: predniSONE 10 MG Oral Tablet; 3 tabs day number 1 and 2, then 2 tabs day number 3 and 4, then 1 tab day number 5 and 6 Rx By: Kd Pena; Dispense: 0 Days ; #:12 Tablet; Refill: 0;For: Acute bronchitis; JANE = N; Sent To: [facility] [place], Cough Coronavirus 2019 RNA by PCR, Symptomatic; Status:In Progress - Specimen/Data Collected; Done: [id number] Perform:Lab Services - Lab To Draw (Non-Blood Test); Due:21Jun2021;Ordered; For:Cough; Ordered By:Kd Pena; RESIDENT IN CONGREGATE CARE SETTING? : No ICU? : No HOSPITALIZED (OR PLANNED TO BE ADMITTED)? : No EMPLOYED IN HEALTHCARE? : No FIRST COVID NASAL SWAB TEST? : Yes Other symptoms: : myalgia, headache Symptom 2 : Nausea/Vomiting Symptom 1 : Cough DATE OF SYMPTOM ONSET? : [id number] IS THE PATIENT SYMPTOMATIC DEFINED BY THE CDC (FEVER>100, NEW WORSENING COUGH OR SHORTNESS OF BREATH, NEW LOSS OF TASTE OR SMELL, SORE THROAT, DIARRHEA, BODY ACHES/MALAISE, HEADACHE, NAUSEA/VOMITING, OR RUNNY NOSE/CONGESTION)? : Yes Patient Discussion/Summary Medications as needed follow up with primary care doctor as needed await final testing in 24 hours, self quarrantine until results completed Chief Complaint Chief Complaints Cough Headache Vomiting cough, congestion, myalgia, headache, has been vaccinated already History of Present Illness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 Associated symptoms include wheezing and headache, but no dyspnea, no chills, no fever, no runny nose, no stuffy nose, no sore throat, no myalgias, no pleuritic chest pain, no chest pain, no vomiting, no heartburn, no postnasal drainage, no mouth breathing, no noisy breathing, no rapid breathing, no hoarseness, no painful swallowing, no eye itching, no nose itching, no hemoptysis and no night sweats. BUCK MILLER presents with complaints of headache. BUCK MILLER presents with complaints of vomiting. Active Problems Problems Acute bronchitis with bronchospasm (466.0) (J20.9) Cough (786.2) (R05) Past Medical History Problems History of acute bronchitis (V12.69) (Z87.09) Resolved Date: 23 Mar 2021 Social History Problems Never smoker Allergies Medication No Known Drug Allergies Recorded By: Oralia Briceno; 05/18/2018 5:43:03 PM NonMedication [place] Recorded By: Rigo Perkins; 10/25/2014 1:22:04 PM Current Meds Medication NameInstruction Atorvastatin Calcium 20 MG Oral Tablet Azithromycin 250 MG Oral TabletTAKE 2 TABLETS ON DAY 1 THEN TAKE 1 TABLET A DAY FOR 4 DAYS. Benzonatate 200 MG Oral CapsuleTAKE 1 CAPSULE 3 TIMES DAILY NEEDED FOR COUGH. Gabapentin 300 MG Oral Capsule Glimepiride 2 MG Oral Tablet Glimepiride 4 MG Oral Tablet Losartan Potassium 100 MG Oral Tablet Losartan Potassium 50 MG Oral Tablet metFORMIN HCl - 1000 MG Oral Tablet predniSONE 20 MG Oral TabletTAKE 1 TABLET Twice daily with food ProAir HFA 108 (90 Base) MCG/ACT Inhalation Aerosol Solution (Albuterol Sulfate HFA)INHALE 2 PUFFS EVERY 4-6 HOURS NEEDED. Vitals Vital Signs Recorded: [id number] 10:11AM Qvzhnrsbkee74.5 F Heart Rate80 Pbifuhlmyrg23 Qawgsinw943 Euskquioi10 Height5 ft 10 in Jqyyxt923 lb 12.00 oz BMI Dstaygmzos51.39 kg/m2 BSA Calculated2.2 Tobacco Useb) No Fall Screeningc) Not medically indicated O2 [id number] Physical Exam Constitutional: Well developed, well nourished. vital signs reviewed. patient alert patient without distress consolable Head and Face: Head and face: Normal. Palpation of the face and sinuses: Normal. Ears, Nose, Mouth, and Throat: Lips, teeth, and gums: Normal. Oropharynx: Normal. Cardiovascular: Heart rate normal, normal S1 and S2, no gallops, no murmurs and no pericardial rub. Rhythm: Normal. Pulmonary: Auscultation of lungs: Abnormal. Auscultation of the lungs revealed expiratory wheezing. Signatures Electronically signed by : Kd Pena MD; Mar 23 2021 10:43AM EST (Author) Normal [employer] Tobacco Screening.on 021 Fall risk assessment c) Not medically indicated [facility] Work Phone: Tobacco use status [facility] b) No [facility] Work Phone: Vital Signs Date Time Vital Sign Value Performing Clinician Facility 09-07-2024 09:31-0500 Body height 175.3 cm Neymar Black MD Work Phone: [facility] 09-07-2024 09:31-0500 Body mass index (BMI) [Ratio] 33.88 kg/m2 Neymar Black MD Work Phone: [facility] 09-07-2024 09:31-0500 Body temperature 97.11 [degF] Neymar Black MD Work Phone: [facility] 09-07-2024 09:31-0500 Body weight 104.06 kg Neymar Black MD Work Phone: [employer] 09-07-2024 09:31-0500 Diastolic blood pressure 71 mm[Hg] Neymar Black MD Work Phone: [facility] [employer] 09-07-2024 09:31-0500 Heart rate 67 /min Neymar Black MD Work Phone: [facility] [employer] 09-07-2024 09:31-0500 Systolic blood pressure 134 mm[Hg] Neymar Black MD Work Phone: [facility] [employer] 03-15-2024 14:25-0400 Body height 175.3 cm Jimmy Ogden DO Work Phone: [facility] [employer] 03-15-2024 14:25-0400 Body mass index (BMI) [Ratio] 34.73 kg/m2 Jimmy Ogden DO Work Phone: [facility] [employer] 03-15-2024 14:25-0400 Body weight 106.69 kg Jimmy Ogden DO Work Phone: [facility] [employer] 03-15-2024 14:25-0400 Diastolic blood pressure 70 mm[Hg] Jimmy Ogden DO Work Phone: [employer] 03-15-2024 14:25-0400 Heart rate 80 /min Jimmy Ogden DO Work Phone: [employer] 03-15-2024 14:25-0400 Respiratory rate 18 /min Jimmy Ogden DO Work Phone: [employer] 03-15-2024 14:25-0400 SaO2% (BldA) [Mass fraction] 95 % Jimmy Ogden DO Work Phone: [employer] Comment on above: 03-15-2024 14:25-0400 Systolic blood pressure 134 mm[Hg] Jimmy Ogden DO Work Phone: [facility] [employer] 12-14-2023 08:34-0400 Body height 175.3 cm Jimmy Ogden DO Work Phone: [facility] [employer] 12-14-2023 08:34-0400 Body mass index (BMI) [Ratio] 34.7 kg/m2 Jimmy Ogden DO Work Phone: [facility] [employer] 12-14-2023 08:34-0400 Body weight 106.59 kg Jimmy Ogden DO Work Phone: [facility] [employer] 12-14-2023 08:34-0400 Diastolic blood pressure 88 mm[Hg] Jimmy Ogden DO Work Phone: [facility] [employer] 12-14-2023 08:34-0400 Heart rate 68 /min Jimmy Ogden DO Work Phone: [facility] [employer] 12-14-2023 08:34-0400 SaO2% (BldA) [Mass fraction] 97 % Jimmy Ogden DO Work Phone: [facility] [employer] 12-14-2023 08:34-0400 Systolic blood pressure 124 mm[Hg] Jimmy Ogden DO Work Phone: [facility] [employer] 05-17-2021 11:50-0400 Body height 177.8 cm Bobbi Barrington [employer] Work Phone: [facility] Work Phone: 05-17-2021 11:50-0400 Body mass index (BMI) [Ratio] 31.14 kg/m2 BobbiLE TOTE Work Phone: [facility] Work Phone: 05-17-2021 11:50-0400 Body surface area Derived from formula 2.16 m2 [employer]biLE TOTE Work Phone: [facility] Work Phone: 05-17-2021 11:50-0400 Body temperature 98 [degF] BobbiLE TOTE Work Phone: [facility] Work Phone: 05-17-2021 11:50-0400 Body weight 98.43 kg Bobbi Hayesedel Work Phone: [facility] Work Phone: 05-17-2021 11:50-0400 Diastolic blood pressure 93 mm[Hg] Bobbi Ferris Miedel Work Phone: [facility] Work Phone: 05-17-2021 11:50-0400 Heart rate 86 /min Bobbibrianna Hayesedel Work Phone: [facility] Work Phone: 05-17-2021 11:50-0400 Respiratory rate 16 /min Bobbi Hayesedel Work Phone: [facility] Work Phone: 05-17-2021 11:50-0400 SaO2% (BldA) [Mass fraction] 97 % Bobbi Hayesedel Work Phone: [facility] Work Phone: 05-17-2021 11:50-0400 Systolic blood pressure 156 mm[Hg] Bobbi Ferris Miedel Work Phone: [facility] Work Phone: 03-23-2021 10:11-0400 Body height 177.8 cm Bobbi Ferris Miedel Work Phone: [facility] Work Phone: 03-23-2021 10:11-0400 Body mass index (BMI) [Ratio] 32.39 kg/m2 Bobbi Ferris Miedel Work Phone: [facility] Work Phone: 03-23-2021 10:11-0400 Body surface area Derived from formula 2.2 m2 Bobbi Hayesedel Work Phone: [facility] Work Phone: 03-23-2021 10:11-0400 Body temperature 98.5 [degF] Bobbi Hayesedel Work Phone: [facility] Work Phone: 03-23-2021 10:11-0400 Body weight 102.4 kg Bobbi Hayesedel Work Phone: [facility] Work Phone: 03-23-2021 10:11-0400 Diastolic blood pressure 90 mm[Hg] Bobbi Hayesedel Work Phone: [facility] Work Phone: 03-23-2021 10:11-0400 Heart rate 80 /min Bobbi Hayesedel Work Phone: [facility] Work Phone: 03-23-2021 10:11-0400 Respiratory rate 16 /min Bobbi Hayesedel Work Phone: [facility] Work Phone: 03-23-2021 10:11-0400 SaO2% (BldA) [Mass fraction] 96 % Bobbi Hayesedel Work Phone: [facility] Work Phone: 03-23-2021 10:11-0400 Systolic blood pressure 149 mm[Hg] Bobbi Hayesedel Work Phone: [facility] Work Phone: Encounters Encounter Date Encounter Type Care Provider Facility Start: 09-07-2024 End: 09-07-2024 Office outpatient new 45 minutes Neymar Black MD Work Phone: [facility] Comment on above: Tremor (Primary Dx) Start: 09-07-2024 End: 09-07-2024 ambulatory [facility] Start: 03-15-2024 End: 03-15-2024 Office outpatient visit 10 minutes Jimmy Ogden DO Work Phone: [facility] Comment on above: ALICE (obstructive sle ep apnea) (Primary Dx); Allergic rhinitis due to animal hair and dander Start: 03-15-2024 End: 03-15-2024 ambulatory JIMMY OGDEN [facility] Start: 01-14-2024 End: 01-15-2024 ambulatory Anthony Graves Work Phone: [facility] Comment on above: ALICE (obstructive sle ep apnea) Start: 01-13-2024 Telephone encounter Jimmy Ogden DO Work Phone: [facility] Start: 01-12-2024 Telephone encounter Jimmy Ogden DO Work Phone: [facility] Comment on above: Auth denied Start: 01-11-2024 Telephone encounter Jimmy Ogden DO Work Phone: [facility] Start: 12-15-2023 Telephone encounter Jimmy Ogden DO Work Phone: [facility] Start: 12-14-2023 End: 12-14-2023 Office outpatient new 45 minutes Jimmy Ogden DO Work Phone: [facility] Comment on above: Allergic rhinitis du e to animal hair and dander (Primary Dx); ALICE (obstructive sleep apnea); Restless leg Start: 12-14-2023 End: 12-14-2023 ambulatory [facility] Start: 11-25-2023 Encounter for genera l adult medical examination without abnormal findings [facility] Start: 11-19-2023 End: 11-19-2023 ambulatory [facility] Work Phone: Start: 11-19-2023 End: 11-19-[address] [facility] Start: 09-25-2022 End: 09-25-2022 ambulatory [place] Work Phone: Start: 09-25-2022 End: 09-25-2022 [facility] Start: 05-18-2021 Chart Update Bobbi Sanderse l Work Phone: [facility] Work Phone: Start: 05-17-2021 Office outpatient visit 15 minutes Bobbi Briones Work Phone: [facility] Work Phone: Start: 03-24-2021 Chart Update Bobbi Sanderse l Work Phone: [facility] Work Phone: Start: 03-23-2021 Office outpatient visit 10 minutes Bobbibrianna Briones Work Phone: [facility] Work Phone: Procedures Date Procedure Procedure Detail Performing Clinician Start: 03-15-2024 Follow-up visit Follow-up KRISTI OGDEN Start: 01-24-2024 POLYSOMNOGRAPHY Kristi Ogden DO Work Phone: Plan of Treatment Date Care Activity Detail Author Start: 2037 RSV Immunization for Adults (1 - 1-dose 75+ series) RSV Immunization for Adults (1 - 1-dose 75+ series) [facility] Start: 05-16-2024 End: 05-16-2024 Patient encounter procedure [facility] Start: 04-02-2024 COVID-19 Vaccine () COVID-19 Vaccine () [facility] Start: 04-02-2024 COVID-19 Vaccine ( season) COVID-19 Vaccine () [facility] Start: 04-02-2024 Influenza vaccination Influenza Vaccine (#1) [facility] Start: 03-15-2024 End: 03-15-2024 Patient encounter procedure 03/15/2024 2:45 PM EDT Office Visit [facility] [address] [place] [id number] Jimmy Ogden DO [address] [place] [address] [facility] Start: 03-06-2024 End: 03-06-2024 Patient encounter procedure 03/06/2024 11:30 AM EDT Office Visit [facility] [address] [place] [phone] Mango Johnson MD [address] [place] [id number] [facility] Start: 01-14-2024 End: 01-14-2024 Clinical Support 01/14/2024 8:30 PM EDT Clinical Support [facility] [address] [place] [id number] Anthony Graves [address] [place] [address] Jimmy Ogden DO [address] [place] [address] [facility] Start: 01-13-2024 End: 01-12-2025 Polysomnography Polysomnography Sleep Center Routine ALICE (obstructive sleep apnea) Expected: 01/13/2024 (Approximate), Expires: 01/12/2025 [facility] Comment on above: Expected: 01/13/2024 (Approximate), Expi res: 01/12/2025 Start: 01-13-2024 End: 01-12-2025 Sleep study with pap titration Sleep study with pap titration Sleep Center Routine ALICE (obstructive sleep apnea) Expected: 01/13/2024 (Approximate), Expires: 01/12/2025 [facility] Work Phone: Comment on above: Expected: 01/13/2024 (Approximate), Expi res: 01/12/2025 Start: 12-14-2023 End: 12-13-2024 Polysomnography Polysomnography Sleep Center Routine ALICE (obstructive sleep apnea) Expected: 12/14/2023 (Approximate), Expires: 12/13/2024 [facility] Work Phone: Comment on above: Expected: 12/14/2023 (Approximate), Expi res: 12/13/2024 Start: 04-02-2023 COVID-19 Vaccine ( season) COVID-19 Vaccine ( season) [facility] Start: 2022 RSV Immunization aged 60 or older (1 - 1-dose 60+ series) RSV Immunization aged 60 or older (1 - 1-dose 60+ series) [facility] Start: 2012 Pneumococcal Vaccine: 50+ Years (2 of 2 - PCV) Pneumococcal Vaccine: 50+ Years (2 of 2 - PCV) [facility] Start: 2012 Zoster Vaccines (1 of 2) Zoster Vaccines (1 of 2) [facility] Start: 1981 DTaP/Tdap/Td Vaccines (1 - Tdap) DTaP/Tdap/Td Vaccines (1 - Tdap) [facility] Start: 1980 Diabetes: Estimated Glomerular Filtration Rate for Kidney Health Diabetes: Estimated Glomerular Filtration Rate for Kidney Health [facility] Start: 1980 Diabetes: Urine Albumin-Creatinine Ratio for Kidney Health Diabetes: Urine Albumin-Creatinine Ratio for Kidney Health [facility] Start: 1980 Hepatitis C screening Hepatitis C Screening [facility] Start: 1974 Depression Screening Depression Screening [facility] Start: 1972 Diabetic foot examination Diabetes: Foot Exam [facility] Start: 1972 Glaucoma screening Diabetes: Retinopathy Screening [facility] Start: 1972 Preventive dental service Diabetes: Dental Exam [facility] Start: 1963 MMR Vaccines (1 of 1 - Standard series) MMR Vaccines (1 of 1 - Standard series) [facility] Start: 1962 Hemoglobin A1c measurement Diabetes: Hemoglobin A1C [facility] Start: 1962 HIV screening HIV Screening [facility] Start: 1962 Lipid panel Lipid Panel [facility] Start: 1962 Screening for malignant neoplasm of colon [facility] Immunizations Immunization Date Immunization Notes Care Provider Fa alka 05-13-2023 influenza virus vacc ine, unspecified formulation Jimmy Ogden DO Work Phone: [facility] Payers Date Payer Category Payer Self-pay [id number] [phone] [id number] 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 2022 Unknown 2022 Unknown [id number] Unknown [id number] Social History Date Type Detail Facility Start: 03-15-2024 End: 09-07-2024 Never smoker Never smoker [facility] Work Phone: Start: 06-26-2020 End: 06-26-2020 Tobacco smoking status NHIS Unknown if ever smoked [place] Start: 07-28-2019 [facility] Start: 1960 Sex Assigned At Male [facility] Start: 1960 Sex Assigned At Not on file [facility] Start: 03-15-2024 End: 09-07-2024 Gender identity Not on file [facility] Start: 03-15-2024 [facility] Start: 03-15-2024 Tobacco use and exposure Smokeless tobacco non-user [facility] Start: 03-15-2024 End: 09-07-2024 Alcoholic beverage intake Current drinker of alcohol (finding) [facility] Start: 11-25-2023 Sex Male (finding) [facility] Clinical Notes 05-10-2021 to 09-07-2024 Neymar Black MD - 09/07/2024 10:00 AM Ignacio Ogden, - 03/15/2024 2:45 PM EDTPatient InstructionsTelephone Encounter - Fernandotroy Melvi, - 01/13/2024 4:10 PM EDT Note Date & Type Note Facility 09-07-2024 History of Presen t illness Narrative NEUROLOGY CLINIC H&P Name: Buck Miller Date: 09/07/2024 Handedness: Left Patient's PCP: Bobbi Briones MD REASON FOR VISIT: Tremor HISTORY OF PRESENT ILLNESS: The following portions of the patient's history were reviewed and updated as appropriate: allergies, current medications, past family history, past medical history, past social history, past surgical history and problem list. Buck Miller is a 64 y.o. male with Past medical history of diabetes, hypertension, erectile dysfunction, hyperlipidemia, restless leg, sleep apnea who presents to neurology office to establish care for tremors. Onset of symptoms: Since 2022 started in left hand and then right at time. Over the last 1 year started noticing some head tremor No Neck dystonia No triggers Tremors are mostly at rest He does have significant RLS Most recent Sleep study: Had ALICE and Periodic limb movement states that moves a lot in his sleep has noticed more tremors when he is holding his phone, No other aggravating or alleviating features Hx of psych meds us: No Hx of recurrent trauma: No, No contact sports NO exposure to agent orange Walking and falls: mechanical Freeze: None A/w: No Anosmia feels that he is congested most of the times, Does have Erectile dysfunction, Does have constipation which he attributes to Mounjaro, Does have flat look on face at carolyn Handwriting: Sloppy Hallucinations: None Mood: generally ok Memory: Good Behavioral changes: None Exercise: No Work up: None Social: Lives with . 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 Smoking: No, Alcohol: No, No rec drug use At baseline: Pt is fully functional Fhx: Brother has PD PAST MEDICAL HISTORY: Past Medical History: Diagnosis Date Diabetes mellitus (HCC) Hypertension Sleep apnea, obstructive Umbilical hernia PAST SURGICAL HISTORY: Past Surgical History: Procedure Laterality Date THROAT SURGERY 1996 FAMILY MEDICAL HISTORY: Family History Problem Relation Name Age of Onset Parkinson's Disease Brother SOCIAL HISTORY: Social History Socioeconomic History Marital status: Tobacco Use Smoking status: Never Smokeless tobacco: Never Substance and Sexual Activity Alcohol use: Yes Drug use: Never Allergy: Allergies Allergen Reactions Lisinopril Cough Pollen Extract Itching, Runny nose and Wheezing MEDS: Current Outpatient Medications Medication Sig Dispense Refill Actos 30 MG tablet 30 mg daily. aspirin 81 MG oral suspension 81 mg daily. cetirizine (ZyrTEC) 10 MG tablet Take 1 tablet (10 mg) by mouth Nightly. 30 tablet 11 Lipitor 20 MG tablet 20 mg daily. losartan (Cozaar) 100 MG tablet 100 mg daily. metFORMIN (Glucophage) 1000 MG tablet 1,000 mg 2 times daily. Mounjaro 7.5 MG/0.5ML solution auto-injector Multiple Vitamins-Minerals (Multiple Vit/Minerals/No Iron) tablet Neurontin 400 MG capsule 800 mg daily. omega-3 (Fish Oil) 1000 MG capsule azelastine (Astelin) 0.1 % nasal spray Administer 1 spray into each nostril 2 times daily. Use in each nostril as directed (Patient not taking: Reported on 09/07/2024) 30 mL 12 fluticasone (Flonase) 50 MCG/ACT nasal spray Administer 2 sprays into each nostril daily. Shake gently. Before first use, prime pump. After use, clean tip and replace cap. 16 g 6 No current facility-administered medications for this visit. COMPLETE REVIEW OF SYSTEMS NEGATIVE UNLESS STATED ABOVE. PHYSICAL EXAM: BP 134/71 (BP Location: Left arm, Patient Position: Sitting, BP Cuff Size: Large adult) Pulse 67 Temp 36.2 C (97.1 F) (Temporal) Ht 5' 9 (1.753 m) Wt 229 lb 6.4 oz (104 kg) BMI 33.88 kg/m GENERAL APPEARANCE: Alert, well-developed, well-nourished male in no acute distress. HEENT: Normocephalic and atraumatic. PERRL. Oropharynx unremarkable. PULM: Normal respiratory effort. No accessory muscle use. CV: RRR. NEURO: MENTAL STATUS: Patient awake and oriented to time, place, and person. Speech clear and fluent. Affect normal. CRANIAL NERVES: CN I: Not tested. CN II: Visual arriola full. CN III, IV, : Pupils equal, round and reactive to light and accommodation; extraocular movements full and intact. CN V: Facial sensation normal. CN VII: No facial asymmetry. CN VIII: Hearing grossly normal and equal bilaterally. No skew deviation or pathologic nystagmus. CN IX, X: Palate elevates symmetrically. CN XI: Shoulder shrug and chin rotation equal with good strength. CN XII: Tongue protrusion midline. MOTOR: Normal bulk. Tone normal and symmetrical throughout. No abnormal movements. Very minimal action tremor Strength 5/5 throughout unless specified below. Bicep Tricep Delt Grasp IPsoas Quads Hams DFlex PFlex EHL Left Right SENSATION: Sensation grossly intact to fine touch COORDINATION: [id number]-bk-[id number] normal for age. STATION: Romberg unremarkable GAIT: Decreased arm swing DIAGNOSTIC TESTS: No results found for: PT, PTT, INR No results found for: CHOLTOT, TRIG, HDL, CHOLHDL, LDL No results found for: HGBA1C No results found for: PROTEINCSF, GLUCCSF, WBCCSF ASSESSMENT & PLAN: Buck was seen today for new patient. Diagnoses and all orders for this visit: Tremor (Primary) Buck Miller is a 64 y.o. male with Past medical history of diabetes, hypertension, erectile dysfunction, hyperlipidemia, restless leg, sleep apnea who presents to neurology office to establish care for tremors. Coming in with tremors, he does have some risk factors with family history of Parkinson's, flat affect, decreased arm swing, constipation, erectile dysfunction being the autonomic symptoms but at this time the tremors are not significant enough. We discussed that we could get a DaTscan but the patient is not interested at this time. He complains of these abnormal movements he has when he is sleeping with his limbs. Previously diagnosed with restless leg but I wonder if this is actually REM sleep disorder. He will talk to his sleep medicine doctors about this. Return to office on as-needed basis No follow-ups on file. 45 minutes of time was spent with the patient today, including same-day review of data/records, patient education, counseling, care coordination, and documentation. All questions were answered and the patient expressed full agreement with the above stated plan of care. Neymar Black MD documented in this encounter [facility] 03-15-2024 History of Presen t illness Narrative Images from the original note were not included. [facility] Department of Pulmonary Medicine PATIENT VISIT-PULMONARY 03/21/2024 REFERRING PHYSICIAN: Bobbi Briones MD REASON FOR REFERRAL: Follow up ordered Buck Miller is a very pleasant 63 y.o. male with past medical history significant for alice, hx of uPPP , remote, allergic rhinitis, shortness of breath, RLS , who presents to pulmonary clinic for evaluation of alice on pap , persistent non restorative sleep, oudated pap. Re-initiated on PAP. Pt working a lot. Fatigue. Using PAP. Reviewed. Dme /interface options. Effective per reportn. Follow up for ongoing care. No change in respiratory signs and symptoms Assessment and Plan: Diagnosis Plan 1. ALICE (obstructive sleep apnea) Dme [employer]. Continue PAP, bring in if need pressure adustment Compliance report reviewd, excellent. No leak 2. Allergic rhinitis due to animal hair and dander Compensated History of Present Illness Smoking history- [] Occupational exposure- [] Asthma History [] COPD History [] PastMedical History Past Medical History: Diagnosis Date Diabetes mellitus (HCC) Hypertension Sleep apnea, obstructive Past Surgical History Past Surgical History: Procedure Laterality Date THROAT SURGERY 1996 Allergies Allergies Allergen Reactions Lisinopril Cough Pollen Extract Itching, Runny nose and Wheezing Medications reviewed at time of encounter Medication Documentation Review Audit Reviewed by Cintia Schwartz MA ([employer]) on 03/15/24 at 1423 Medication Order Taking? Sig Documenting Provider Last Dose Status azelastine (Astelin) 0.1 % nasal spray [id number] Yes Administer 1 spray into each nostril 2 times daily. Use in each nostril as directed Jimmy Ogden DO Taking Active cetirizine (ZyrTEC) 10 MG tablet [id number] Yes Take 1 tablet (10 mg) by mouth Nightly. Jimmy Ogden DO Taking Active fluticasone (Flonase) 50 MCG/ACT nasal spray [id number] Yes Administer 2 sprays into each nostril daily. Shake gently. Before first use, prime pump. After use, clean tip and replace cap. Jimmy Ogden DO Taking Active Medications reviewed Social History Social History Tobacco Use Smoking status: Never Smokeless tobacco: Never Substance Use Topics Alcohol use: Yes FamilyHistory No family history on file. In addition to those listed in HPI: Review of Systems HENT: Negative for congestion. Respiratory: Positive for apnea. Negative for cough, choking, chest tightness, shortness of breath and stridor. Physical Exam Constitutional: Appearance: He is not ill-appearing. Cardiovascular: Rate and Rhythm: Normal rate. Pulmonary: Effort: Pulmonary effort is normal. Musculoskeletal: General: No swelling. Normal range of motion. Neurological: General: No focal deficit present. Mental Status: He is alert and oriented to person, place, and time. Physical Exam Vitals: 03/15/24 1425 BP: 134/70 BP Location: Left arm Patient Position: Sitting BP Cuff Size: Adult Pulse: 80 Resp: 18 SpO2: 95% Weight: 235 lb 3.2 oz (107 kg) Height: 5' 9 (1.753 m) LABS and Studies: Available studies were reviewed [x] IgE reviewed [] Peripheral eosinophils reviewed [x] Radiology: available imaging reviewed personally [x] PFT's : available [] Pulmonary Functions Testing Results: No results found for: FEV1, FVC, PWE6LZM, TLC, DLCO No orders of the defined types were placed in this encounter. Counseling given: Not Answered No results found for: CBCDIF, QAFUMIGATUS No results found for: EOSABS, IGE, IMMUNOGLOBUL The USPSTF recommends annual screening for lung cancer with low-dose computed tomography (LDCT) in adults aged 50 to 80 years who have a 20 pack-year smoking history and currently smoke or have quit within the past 15 years. Screening should be discontinued once a person has not smoked for 15 years or develops a health problem that substantially limits life expectancy or the ability or willingness to have curative lung surgery. Patient meets criteria [] No orders of the defined types were placed in this encounter. documented in this encounter [facility] 03-15-2024 Instructions Cintia Schwartz MA - 03/15/2024 2:45 PM EDT YOUR APPOINTMENT TODAY WAS WITH [facility], COPD CLINIC, PULMONARY AND SLEEP MEDICINE OFFICE. PLEASE CALL OUR OFFICE AT [phone] IF YOU HAVE NOT RECEIVED YOUR TEST RESULTS 7 DAYS AFTER TESTING IS COMPLETED. PLEASE REMEMBER TO REQUEST REFILLS AT YOUR OFFICE VISITS. PHONE/FAX REQUESTS REQUIRE 48-72 HOURS FOR RESPONSE. A FRIENDLY REMINDER COPAYS ARE DUE AT TIME OF SERVICE. THANK YOU. Our Patients Are Important! We want to improve and you can help. After your visit we want you to feel: Listened to, Respected and have your health care explained. You may receive a survey asking you about your visit. Please complete the survey. We will use your feedback to make improvements. COVID-19 VACCINATION INFORMATION: PH. [phone] [email or web address] [facility] Central Scheduling [phone] [facility] Sleep Scheduling [phone] documented in this encounter [facility] 01-13-2024 Telephone encounter Note Insurance coverage issue. Needs psg with titration. Ordered psg . And titration. Will order just psg as dictated by insurance [facility] 01-13-2024 Miscellaneous Notes Insurance coverage issue. Needs psg with titration. Ordered psg . And titration. Will order just psg as dictated by insurance documented in this encounter [facility] 01-13-2024 Telephone encounter Note We are waiting on the provider to do an updated order for just he PSG. Sending him a reminder it needs done today as test is tomorrow. Thanks! [facility] 01-13-2024 Miscellaneous Notes We are waiting on the provider to do an updated order for just he PSG. Sending him a reminder it needs done today as test is tomorrow. Thanks! Rae, This patient is scheduled for 01/13 for Split night. Patient has medical mutual and auth would go to [employer]. Seen auth has been pending on the portal for some time and call [employer] [facility] to see status. Spoke with rep Mckenzie Foster was told for auth #[id number] auth was approved for cpt code 82052 but denied for cpt code 73053. Seeing how did you want to proceed? Thank you [facility] Sleep scheduling department documented in this encounter [facility] 01-12-2024 Telephone encounter Note Rae, This patient is scheduled for 01/13 for Split night. Patient has medical [employer] and auth would go to [employer]. Seen auth has been pending on the portal for some time and call [facility] to see status. Spoke with rep Mckenzie Foster was told for auth #[id number] auth was approved for cpt code 28118 but denied for cpt code 85334. Seeing how did you want to proceed? Thank you [facility] Sleep scheduling department [facility] 01-11-2024 Telephone encounter Note Good Morning! We are only able to get the PSG (41996) approved with the patient's insurance, as they will not approve a split night and the sleep center will not schedule to patient for just that with the current order for the split night. Can you please write a new order with no mention of the split on it? Thanks! [facility] 01-11-2024 Miscellaneous Notes Good Morning! We are only able to get the PSG (90542) approved with the patient's insurance, as they will not approve a split night and the sleep center will not schedule to patient for just that with the current order for the split night. Can you please write a new order with no mention of the split on it? Thanks! documented in this encounter [facility] 01-05-2024 Telephone encounter Note Can you please sign the pended sleep study order? So I can get pt rescheduled to the correct test on time, thank you! [facility] 01-05-2024 Miscellaneous Notes Can you please sign the pended sleep study order? So I can get pt rescheduled to the correct test on time, thank you! Called [employer] to check status on split night authorization. The baseline 27563 is approved, but the titration portion got denied. Auth# [id number] Valid 01/14/24 - 07/12/24 Dr. Ogden, I pended an in lab PSG for you to sign, if you agree with this. Then based off those results, if shows ALICE we can then submit the titration portion and get it approved. Thank you Good Morning! I am working on the auth for the patient's upcoming testing and the OV from yesterday is not signed and I need this to submit to insurance. Are you able to complete and sign that today? Thanks! documented in this encounter [facility] 12-30-2023 Telephone encounter Note Called [employer] to check status on split night authorization. The baseline [id number] is approved, but the titration portion got denied. Auth# [id number] Valid 01/14/24 - 07/12/24 Dr. Ogden, I pended an in lab PSG for you to sign, if you agree with this. Then based off those results, if shows ALICE we can then submit the titration portion and get it approved. Thank you [facility] 12-30-2023 Miscellaneous Notes Called [employer] to check status on split night authorization. The baseline 00469 is approved, but the titration portion got denied. Auth# [id number] Valid 01/14/24 - 07/12/24 Dr. Ogden, I pended an in lab PSG for you to sign, if you agree with this. Then based off those results, if shows ALICE we can then submit the titration portion and get it approved. Thank you Good Morning! I am working on the auth for the patient's upcoming testing and the OV from yesterday is not signed and I need this to submit to insurance. Are you able to complete and sign that today? Thanks! documented in this encounter [facility] 12-15-2023 Telephone encounter Note Good Morning! I am working on the auth for the patient's upcoming testing and the OV from yesterday is not signed and I need this to submit to insurance. Are you able to complete and sign that today? Thanks! [facility] 12-15-2023 Miscellaneous Notes Good Morning! I am working on the auth for the patient's upcoming testing and the OV from yesterday is not signed and I need this to submit to insurance. Are you able to complete and sign that today? Thanks! documented in this encounter [facility] 12-14-2023 History of Presen t illness Narrative [facility] Department of Pulmonary Medicine PATIENT VISIT-PULMONARY 12/14/2023 REFERRING PHYSICIAN: Bobbi Briones MD REASON FOR REFERRAL: cpap issues 3 months follow up Copap adjustement this week Buck Miller is a very pleasant 63 y.o. male with past medical history significant for alice, hx of uPPP , remote, allergic rhinitis, shortness of breath, RLS , who presents to pulmonary clinic for evaluation of alice on pap , persistent non restorative sleep, oudated pap. Pt reports hypersomnia, non restorative sleep. Issues with pap pressure. Advised to bring. Re-eval . Increased from 10 cm to 2 and baseline starting from 5 to 7. Full face. New mask trial. Needs new machine, follow up with DME after repeat pap tritration PSG. Pt with allergic rhinitis, congestion, post nasal drainage. Mild burgess with heavy exertion, minimal . No hx of smoking or copd or asthma. Accopanied by SO. 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 Assessment and Plan: Diagnosis Plan 1. Allergic rhinitis due to animal hair and dander Flonaze, azelastine / zyrtec prn 2. ALICE (obstructive sleep apnea) with persistent hypersomnia despite PAP therapy Polysomnography repeat PSG titration study. 3. Restless leg Re-pedro psg. Prior rx failed. History of Present Illness Smoking history- [] Occupational exposure- [] Asthma History [] COPD History [] PastMedical History Alice, allergies Past Surgical History UPPP No Known Allergies Medications reviewed at time of encounter Medication Documentation Review Audit Prior to Admission medications have not yet been reviewed Medications reviewed Social History Social History Tobacco Use Smoking status: Not on file Smokeless tobacco: Not on file Substance Use Topics Alcohol use: Not on file FamilyHistory No family history on file. In addition to those listed in HPI: Review of Systems HENT: Positive for congestion. Respiratory: Positive for apnea. Physical Exam Constitutional: Appearance: He is normal weight. He is not ill-appearing. HENT: Head: Normocephalic. Nose: Congestion present. Cardiovascular: Rate and Rhythm: Normal rate. Pulmonary: Effort: Pulmonary effort is normal. No respiratory distress. Abdominal: General: Abdomen is flat. Skin: General: Skin is warm. Coloration: Skin is not jaundiced or pale. Neurological: General: No focal deficit present. Mental Status: He is alert and oriented to person, place, and time. Psychiatric: Mood and Affect: Mood normal. Physical Exam Vitals: 12/14/23 0834 BP: 124/88 Pulse: 68 SpO2: 97% Weight: 235 lb (107 kg) Height: 5' 9 (1.753 m) LABS and Studies: Available studies were reviewed [x] IgE reviewed [] Peripheral eosinophils reviewed [x] Radiology: available imaging reviewed personally [x] PFT's : available [] Pulmonary Functions Testing Results: No results found for: FEV1, FVC, HKR8HEU, TLC, DLCO Orders Placed This Encounter Procedures Polysomnography Standing Status: Future Standing Expiration Date: 12/13/2024 Order Specific Question: Patient will have accompaniment? Answer: Yes Order Specific Question: Patient on PAP? Answer: Yes Order Specific Question: Retitration study? Answer: Yes Order Specific Question: Type of titration Answer: CPAP Order Specific Question: Split night protocol? Answer: Yes Order Specific Question: Patient to be split if AHI is greater than Answer: 5 @SMOKINGHX@ Counseling given: Not Answered Counseling given: Not Answered No results found for: CBCDIF, QAFUMIGATUS No results found for: EOSABS, IGE, IMMUNOGLOBUL The USPSTF recommends annual screening for lung cancer with low-dose computed tomography (LDCT) in adults aged 50 to 80 years who have a 20 pack-year smoking history and currently smoke or have quit within the past 15 years. Screening should be discontinued once a person has not smoked for 15 years or develops a health problem that substantially limits life expectancy or the ability or willingness to have curative lung surgery. Patient meets criteria [] Orders Placed This Encounter Procedures Polysomnography Uppp Alice Allergic rhintiis documented in this encounter [facility] 12-14-2023 Instructions Toby Jones MA - 12/14/2023 8:30 AM EDT YOUR APPOINTMENT TODAY WAS WITH THE [facility], COPD CLINIC, PULMONARY AND SLEEP MEDICINE OFFICE. PLEASE CALL OUR OFFICE AT [phone] IF YOU HAVE NOT RECEIVED YOUR TEST RESULTS 7 DAYS AFTER TESTING IS COMPLETED. PLEASE REMEMBER TO REQUEST REFILLS AT YOUR OFFICE VISITS. PHONE/FAX REQUESTS REQUIRE 48-72 HOURS FOR RESPONSE. A FRIENDLY REMINDER COPAYS ARE DUE AT TIME OF SERVICE. THANK YOU. Our Patients Are Important! We want to improve and you can help. After your visit we want you to feel: Listened to, Respected and have your health care explained. You may receive a survey asking you about your visit. Please complete the survey. We will use your feedback to make improvements. COVID-19 VACCINATION INFORMATION: PH. [phone] [email or web address] [facility] Central Scheduling [phone] [facility] Sleep Scheduling [phone] documented in this encounter [facility] 05-10-2021 History of Presen t illness Narrative 60-year-old male presents to urgent care today with a cough. Onset 1 week ago. Patient admits the cough is mostly dry. Denies any chest pain, shortness of breath. Today coughed very hard and hurt his lower back. Now feels like he strained his back. Admits to mild nasal congestion. Had a little sore throat which resolved. States plenty of people in his workplace have a similar infection. No known COVID-19 exposure. Patient is fully vaccinated. PMH DM on oral agents, HLD, HTN [facility] Work Phone: Evaluation note No assessment inform ation available [place] Work Phone: Evaluation note Diagnosis Allergic rhinitis due to animal hair and dander- Primary Allergic rhinitis due to animal (cat) (dog) hair and dander ALICE (obstructive sleep apnea) Obstructive sleep apnea (adult) (pediatric) Restless leg Restless legs syndrome (RLS) [facility] Diagnosis ALICE (obstructive sleep apnea)- Primary Obstructive sleep apnea (adult) (pediatric) [facility] Diagnosis ALICE (obstructive sleep apnea)- Primary Obstructive sleep apnea (adult) (pediatric) Allergic rhinitis due to animal hair and dander Allergic rhinitis due to animal (cat) (dog) hair and dander [facility] Diagnosis ALICE (obstructive sleep apnea) Obstructive sleep apnea (adult) (pediatric) [facility] Diagnosis Tremor- Primary Abnormal involuntary movements [facility]* 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 * Associated symptoms include wheezing and headache, but no dyspnea, no chills, no fever, no runny nose, no stuffy nose, no sore throat, no myalgias, no pleuritic chest pain, no chest pain, no vomiting, no heartburn, no postnasal drainage, no mouth breathing, no noisy breathing, no rapid breathing, no hoarseness, no painful swallowing, no eye itching, no nose itching, no hemoptysis and no night sweats. * BUCK MILLER presents with complaints of headache. * BUCK MILLER presents with complaints of vomiting. [facility] Work Phone: Chief Complaint cough, congestion, myalgia, headache, has been vaccinated already Summary Purpose Family History No Family History Records Found Relationship Condition Age at Onset Recorded Date/T dinah grandfather Malignant neoplasm Unknown grandmother Cardiac disease Unknown father Malignant neoplasm Unknown Advance Directives No Advanced Directives Records Found Advance Directive Response Recorded Date/ Time Living Will No July 28 10:34am Power of Federal Law Clerk No July 28, 2019 10:34am Advance Directive Response Recorded Date/ Time Living Will No July 28 11:34am Power of Federal Law Clerk No July 28, 2019 11:34am Reason for Referral Specialty Diagnoses / Procedures Referred By Yaron t Referred To Contact Sleep Medicine Diagnoses ALICE (obstructive sleep apnea) Procedures Polysomnography Jimmy Ogden DO [address] [place] [address] Referral ID Status Reason Start Date Expiration Date V isits Requested Visits Authorized [id number] Pending Review 12/14/2023 12/08/2024 1 1 Referral ID Status Reason Start Date Expiration Date V isits Requested Visits Authorized [id number] Authorized 01/13/2024 01/07/2025 1 1 Specialty Diagnoses / Procedures Referred By Contac t Referred To Contact Sleep Medicine Diagnoses ALICE (obstructive sleep apnea) Procedures Sleep study with pap titration Jimmy Ogden DO [address] [place] [address] Referral ID Status Reason Start Date Expiration Date V isits Requested Visits Authorized [id number] Pending Review 01/13/2024 01/07/2025 1 1 Additional Source Comments (unrecognized sect ion and content) No Status Records FoundNo Status Records FoundNo Status Records FoundNo Status Records Found INFORMATION SOURCE (unrecogn ized section and content) DATE CREATED AUTHOR 05/18/2021 [facility] DATE CREATED AUTHOR AUTHOR'S ORGANIZ ATION 05/18/2021 [employer] DATE CREATED AUTHOR AUTHOR'S ORGANIZ ATION 11/26/2023 [facility] DATE CREATED AUTHOR AUTHOR'S ORGANIZ ATION 09/09/2024 [facility] Care Teams (unrecognized sec tion and content) Team Status: Active Member Role Status Dates Dr. Bobbi Briones MD Family Provider Active Dr. Bobbi Briones MD Primary Care Provider Active Team Status: Inactive Member Role Status Dates Dr. Bobbi Briones MD Primary Care Provider, Attendin g Provider Active Integrity Manager Relationship Specialty Start Date End Date Bobbi Briones MD [address] [place] [phone] PCP - General Family Medicine 12/14/23 Integrity Manager Relationship Specialty Start Date End Date Bobbi Briones MD [address] [place] [phone] PCP - General Family Medicine 12/14/23 Integrity Manager Relationship Specialty Start Date End Date Bobbi Briones MD [address] [place] [phone] PCP - General Family Medicine 12/14/23 Integrity Manager Relationship Specialty Start Date End Date Bobbi Briones MD [address] [place] [phone] PCP - General Family Medicine 12/14/23 Integrity Manager Relationship Specialty Start Date End Date Bobbi Briones MD [address] [place] [phone] PCP - General Family Medicine 12/14/23 Integrity Manager Relationship Specialty Start Date End Date Bobbi Briones MD [address] [place] [phone] PCP - General Family Medicine 12/14/23 Integrity Manager Relationship Specialty Start Date End Date Bbobi Briones MD [address] [place] [phone] PCP - General Family Medicine 12/14/23 Integrity Manager Relationship Specialty Start Date End Date Bobbi Briones MD [address] [place] [phone] PCP - General Family Medicine 12/14/23 Integrity Manager Relationship Specialty Start Date End Date Bobbi Briones MD [address] [place] [address] PCP - General Family Medicine 12/14/23 Integrity Manager Relationship Specialty Start Date End Date Bobbi Briones MD [address] [place] [address] PCP - General Family Medicine 12/14/23 Goals (unrecognized section and content) Goals may be documented in a n alternate sectionGoals may be documented in an alternate section Reason for Visit (unrecogniz ed section and content) Reason Comments New Patient Sleep Specialty Diagnoses / Procedures Referred By Contac t Referred To Contact Pulmonology Diagnoses Obstructive sleep apnea (adult) (pediatric) Procedures [place] OFFICE/OUTPATIENT NEW MODERATE MDM 45 MINUTES Nydia Leal [address] [place] [address] [facility] [address] [place] [address] Referral ID Status Reason Start Date Expiration Date Visits Re quested Visits Authorized [id number] Closed 11/25/2023 11/24/2024 1 1 Reason Onset Date Comments Auth denied 01/12/2024 Reason Comments Follow-up Specialty Diagnoses / Procedures Referred By Contac t Referred To Contact Sleep Medicine Diagnoses ALICE (obstructive sleep apnea) Procedures Polysomnography Jimmy Ogden DO [address] [place] [address] Referral ID Status Reason Start Date Expiration Date Visits Re quested Visits Authorized [id number] Closed 01/13/2024 01/07/2025 1 1 Reason Comments New Patient New patient-tremors hands and head. likely years, unsure how long Specialty Diagnoses / Procedures Referred By Contac t Referred To Contact Neurology Diagnoses Other specified forms of tremor Procedures NV OFFICE/OUTPATIENT NEW MODERATE MDM 45 MINUTES Bobbi Briones MD [address] [place] [address] Phone: tel: fax: [facility] [address] [place] [address] Phone: tel: fax: Referral ID Status Reason Start Date Expiration Date V isits Requested Visits Authorized [id number] Pending Review 11/25/2023 11/24/2024 1 1 FOR RECORDS PERTAINING TO PATIENTS WHO ARE OR HAVE BEEN ENROLLED IN A CHEMICAL DEPENDENCY/SUBSTANCEABUSE PROGRAM, SOME INFORMATION MAY BE OMITTED. This clinical summary was aggregated from multiple sources. Caution should be exercised in using it in the provision of clinical care. This summary normalizes information from multiple sources, and as a consequence, information in this document may materially change the coding, format and clinical context of patient data. In addition, data may be omitted in some cases. CLINICAL DECISIONS SHOULD BE BASED ON THE PRIMARY CLINICAL RECORDS. [employer] [facility]. provides no warranty or guarantee of the accuracy or completeness of information in this document.
== END | disposition home or self-care (01) ==
PROVIDERS: PCP Family Medicine; Visit Provider Family Medicine
DX: Z00.00 Encounter for general adult medical examination without abnormal findings (principal); E11.65 Type 2 diabetes mellitus with hyperglycemia; E11.69 Type 2 diabetes mellitus with other specified complication; E78.5 Hyperlipidemia, unspecified; I10 Essential (primary) hypertension
CPT/HCPCS: 36415; 80053; 80061; 82043; 82570; 84443; 85025